=== PATIENT | male | born 1960 | race Two or more races ===

== ENCOUNTER 2019-08-06 06:16 | Inpatient (IN) | payer MEDICAID, OTHER ==
[~2019-08-06] VITALS: Ht 160 cm; Wt 63.5 kg
--- NOTE | 2019-08-06 06:18 | NUR ---
ED Nurse Note: pt presents to ED via EMS arrival RA 829 with a behavioral complaint. [employer] badge # [id number] are at bedside and placed a hold on pt. per EMS, pt was completely naked and running into traffic. they state that they beleive he is a danger to himself. pt appears to be dishevled and unkempt, he has a strong foul odor, he is guyanese speaking but his answers seem to be incoherent. he ambulates with a steady gait and can follow simple commands. he does not have any belongings. pt is alert and responds to his name but cannot answer questions about date, orientation or purpose.
[2019-08-06 06:25] VITALS: BP 155/83
--- NOTE | 2019-08-06 06:25 | NUR ---
ED Nurse Note: upon re-examination, pt is able to answer questions more coherently. he knows the day of the week but still does not know where he is. he is able to answer questions and follow commands. pt states he is SI and HI, he states he wants to hurt himself and others. denies any pain at this time. all safety precautions are in place, will continue to monitor
--- NOTE | 2019-08-06 06:36 | Emergency Room Report ---
History of Present Illness General Chief Complaint: Behavioral Complaint Source: Patient, EMS, Law Enforcement Present Illness HPI The patient is brought in by [employer] and EMS found walking naked in the streets. The patient denies pain at this time. He states he usually takes psychiatric medications. Most recently he was taking Zyprexa. He is not sure of the dose. He denies suicidal or homicidal ideations. The police have placed the patient on a 5150. The patient admits to smoking, alcohol and cocaine use. He has been admitted psychiatrically in the past. He denies suicidal or homicidal ideation. Patient says yes to most questions. Patient denies productive cough, headache, nausea, vomiting or diarrhea. He denies dysuria. He does have blisters on his feet. The patient states his been 15 years since his last tetanus shot. Allergies: Coded Allergies: No Known Allergies (Unverified , 08/06/19) Patient History Past Medical History: see triage record Social History: Reports: smoking, alcohol use, drug use Social History Narrative Born in [place] Reviewed Nursing Documentation: PMH: Agreed; PSxH: Agreed Nursing Documentation-PMH Hx Hypertension: Yes History Of Psychiatric Problem: Yes Review of Systems All Other Systems: negative except mentioned in HPI Physical Exam Vital Signs Date Time Temp Pulse Resp B/P (MAP) Pulse Ox O2 Delivery O2 Flow Rate FiO2 08/06/19 06:10 98.2 88 18 155/83 (107) 98 Room Air Sp02 EP Interpretation: reviewed, normal General Appearance: alert, non-toxic, thin, other - Disheveled Head: normocephalic Eyes: bilateral eye PERRL, bilateral eye EOMI, bilateral eye Scleral Injection ENT: moist mucus membranes Neck: supple Respiratory: lungs clear, normal breath sounds Cardiovascular #1: regular rate, rhythm Cardiovascular #2: 2+ radial (R) Gastrointestinal: normal inspection, normal bowel sounds, non tender, no mass, non-distended Musculoskeletal: back normal, normal range of motion, gait/station normal Neurologic: alert, motor strength/tone normal, asset management analyst III-XII nml as tested, oriented - X2, DTRs symmetric, sensory intact, cerebellar normal, speech normal Psychiatric: mood/affect normal - Somewhat flat affect, no suicidal/homicidal ideation Skin: abrasion - Ankles, other - Blisters on feet Medical Decision Making Diagnostic Impression: Primary Impression: Rhabdomyolysis Qualified Codes: T79.6XXA - Traumatic ischemia of muscle, initial encounter Additional Impressions: Leukocytosis Qualified Codes: D72.828 - Other elevated white blood cell count Schizophrenia Qualified Codes: F20.9 - Schizophrenia, unspecified Blister of foot Qualified Codes: S90.829A - Blister (nonthermal), unspecified foot, initial encounter ER Course Patient with prior psychiatric history is brought in by [employer] and placed on 5150. Differential includes exacerbation of schizophrenia, electrolyte imbalance, dehydration, substance abuse amongst others. Patient evaluated with EKG, chest x-ray and labs. Patient treated with bacitracin, Zyprexa and IV hydration. Complex patient with multisystem involvement. EKG normal sinus rhythm. Chest x-ray poor inspiration film. Labs with leukocytosis. Elevated CPK and low potassium. Alkalinization begun. Potassium administered orally. Patient admitted medical. Laboratory Tests Test 08/06/19 06:39 08/06/19 06:55 08/06/19 15:30 08/06/19 18:00 HIV (1&2) Antibody Rapid Negative (NEGATIVE) White Blood Count 18.1 K/UL (4.8-10.8) H Red Blood Count 5.55 M/UL (4.70-6.10) Hemoglobin 17.0 G/DL (14.2-18.0) Hematocrit 49.7 % (42.0-52.0) Mean Corpuscular Volume 90 FL (80-99) Mean Corpuscular Hemoglobin 30.6 PG (27.0-31.0) Mean Corpuscular Hemoglobin Concent 34.1 G/DL (32.0-36.0) Red Cell Distribution Width 11.0 % (11.6-14.8) L Platelet Count 256 K/UL (150-450) Mean Platelet Volume 7.5 FL (6.5-10.1) Neutrophils (%) (Auto) % (45.0-75.0) Lymphocytes (%) (Auto) % (20.0-45.0) Monocytes (%) (Auto) % (1.0-10.0) Eosinophils (%) (Auto) % (0.0-3.0) Basophils (%) (Auto) % (0.0-2.0) Differential Total Cells Counted 100 Neutrophils % (Manual) 82 % (45-75) H Lymphocytes % (Manual) 10 % (20-45) L Monocytes % (Manual) 8 % (1-10) Eosinophils % (Manual) 0 % (0-3) Basophils % (Manual) 0 % (0-2) Band Neutrophils 0 % (0-8) Platelet Estimate Adequate Platelet Morphology Normal Red Blood Cell Morphology Normal Sodium Level 146 MMOL/L (136-145) H Potassium Level 3.2 MMOL/L (3.5-5.1) L Chloride Level 108 MMOL/L (98-107) H Carbon Dioxide Level 26 MMOL/L (21-32) Anion Gap 13 mmol/L (5-15) Blood Urea Nitrogen 33 mg/dL (7-18) H Creatinine 1.0 MG/DL (0.55-1.30) Estimate Glomerular Filtration Rate > 60 mL/min (>60) Glucose Level 93 MG/DL (74-106) Calcium Level 10.2 MG/DL (8.5-10.1) H Total Bilirubin 1.4 MG/DL (0.2-1.0) H Direct Bilirubin 0.2 MG/DL (0.0-0.3) Aspartate Amino Transferase (AST) 103 U/L (15-37) H Alanine Aminotransferase (ALT) 53 U/L (12-78) Alkaline Phosphatase 128 U/L (46-116) H Total Creatine Kinase 3099 U/L (26-308) H Troponin I 0.024 ng/mL (0.000-0.056) Total Protein 8.6 G/DL (6.4-8.2) H Albumin 4.4 G/DL (3.4-5.0) Globulin 4.2 g/dL Albumin/Globulin Ratio 1.0 (1.0-2.7) Salicylates Level 0.2 ug/mL (2.8-20) L Acetaminophen Level < 2 MCG/ML (10-30) L Serum Alcohol < 3 mg/dL Hepatitis A IgM Antibody Pending Hepatitis B Surface Antigen Pending Hepatitis B Core IgM Antibody Pending Hepatitis C Antibody Pending Urine Color Brown Urine Appearance Clear Urine pH 5 (4.5-8.0) Urine Specific [place] 1.020 (1.005-1.035) Urine Protein 2+ (NEGATIVE) H Urine Glucose (UA) Negative (NEGATIVE) Urine Ketones 1+ (NEGATIVE) H Urine Blood 3+ (NEGATIVE) H Urine Nitrite Negative (NEGATIVE) Urine Bilirubin Negative (NEGATIVE) Urine Urobilinogen 8 MG/DL (0.0-1.0) H Urine Leukocyte Esterase Negative (NEGATIVE) Urine RBC 5-10 /HPF (0 - 0) H Urine WBC 2-4 /HPF (0 - 0) Urine Squamous Epithelial Cells None /LPF (NONE/OCC) Urine Bacteria Few /HPF (NONE) Urine Opiates Screen Negative (NEGATIVE) Urine Barbiturates Screen Negative (NEGATIVE) Phencyclidine (PCP) Screen Negative (NEGATIVE) Urine Amphetamines Screen Negative (NEGATIVE) Urine Benzodiazepines Screen Negative (NEGATIVE) Urine Cocaine Screen Negative (NEGATIVE) Urine Marijuana (THC) Screen Negative (NEGATIVE) EKG Diagnostic Results Rate: normal Rhythm: NSR ST Segments: no acute changes Rhythm Strip Diag. Results EP Interpretation: yes Rhythm: NSR, no PVC's, no ectopy Chest X-Ray Diagnostic Results Chest X-Ray Diagnostic Results : Chest X-Ray Ordered: Yes # of Views/Limited/Complete: 1 View Indication: Other EP Interpretation: Yes Interpretation: no consolidation, no effusion, no pneumothorax Impression: No acute disease Electronically Signed by: Electronically signed by Neel Jules MD Last Vital Signs Date Time Temp Pulse Resp B/P (MAP) Pulse Ox O2 Delivery O2 Flow Rate FiO2 08/06/19 16:00 98.2 72 20 112/69 (83) 97 08/06/19 09:45 Room Air Status: improved Disposition: ADMITTED INPATIENT Condition: Serious Neel Jules MD Aug 06, 2019 06:36
[2019-08-06] MEDS ORDERED: Bacitracin Oint UD TOPIC ONE (06:45)
[2019-08-06] MEDS ORDERED: Tetanus/Diptheria/Pertussis IM ONE (06:45)
--- NOTE | 2019-08-06 06:58 | NUR ---
ED Nurse Note: breakfast ordered, pt is unable to provide urine sample at this time, all labwork sent to lab. IV line established in L hand, fluids running
--- NOTE | 2019-08-06 06:59 | NUR ---
ED Nurse Note: TIERRA Jules notified about inability to obtain urine sample at this time. pt has many cuts noted on his feet, possibly from walking without shoes on as pt was brought into ED completely naked without any belongings.
[2019-08-06 07:06] LABS: HEMATOCRIT 49.7 % (42.0-52.0); MEAN CORPUSCULAR VOLUME 90 FL (80-99); PLATELET COUNT 256 K/UL (150-450); RED BLOOD COUNT 5.55 M/UL (4.70-6.10); WHITE BLOOD COUNT 18.1 K/UL (4.8-10.8)
--- NOTE | 2019-08-06 07:10 | NUR ---
HAND-OFF: Report given to Meme Last RN.
--- NOTE | 2019-08-06 07:11 | NUR ---
ED Nurse Note: Received pt on bed, awake and alert. Noted IV hydration on going to site; intact, patent and infusing well. Pt's VSS, on RA, NAD. Placed bed on low position, bilateral side rails up.
[2019-08-06 07:18] LABS: ANION GAP 13 mmol/L (5-15); BLOOD UREA NITROGEN 33 mg/dL (7-18); CALCIUM 10.2 MG/DL (8.5-10.1); CARBON DIOXIDE 26 MMOL/L (21-32); CHLORIDE 108 MMOL/L (98-107); POTASSIUM 3.2 MMOL/L (3.5-5.1); SODIUM 146 MMOL/L (136-145)
--- NOTE | 2019-08-06 07:27 | NUR ---
ED Nurse Note: X-ray at bedside.
[2019-08-06 07:28] LABS: ALANINE AMINOTRANSFERASE 53 U/L (12-78); ALBUMIN 4.4 G/DL (3.4-5.0); ALKALINE PHOSPHATASE 128 U/L (46-116); ASPARTATE AMINO TRANSFERASE 103 U/L (15-37); BILIRUBIN,TOTAL 1.4 MG/DL (0.2-1.0); CREATINE KINASE 3099 U/L (26-308)
[2019-08-06 07:32] LABS: BILIRUBIN,DIRECT 0.2 MG/DL (0.0-0.3)
--- NOTE | 2019-08-06 07:42 | NUR ---
ED Nurse Note: [facility] Nurse Drapery Hemmer Automatic/thaiter at bedside.
--- NOTE | 2019-08-06 07:47 | NUR ---
ED Nurse Note: Offered breakfast tray to pt.
[2019-08-06 07:48] VITALS: BP 155/83
--- NOTE | 2019-08-06 07:58 | NUR ---
ED Nurse Note: Pt consumed 100% of breakfast meal.
[2019-08-06] MEDS: Sodium Bicarbonate 150 ML in D5W 1000ml 1,000 ML IV SCH ×2 (08:00→13:16)
--- NOTE | 2019-08-06 08:39 | Diagnostic Imaging Report ---
Indication: Cough Technique: One view of the chest Comparison: none Findings: Lungs and pleural spaces are clear. Heart size is normal. Impression: No acute process
--- NOTE | 2019-08-06 09:15 | NUR ---
TRANSFER TO [facility]: Patient transferred to [address] as ordered, per Dr. Andrade. Report given to Triny SLATER. Noted pt has no belongings, as written on the form. Pt arrived to [facility] accompanied by [facility] nurse medical office receptionist assistant/sitter. Family and or S/O informed of transfer.
[2019-08-06 09:30] VITALS: BP 140/86
--- NOTE | 2019-08-06 09:30 | NUR ---
NURSE NOTES: RECEIVED PATIENT A/A/OX1, CONFUSED UPON ADMISSION. SITTER @ BEDSIDE. PATIENT WAS COVERED WITH DRY MUD AND DRY FECES. WASHED AND ASSESS SKIN. WOUND PHOTO TAKEN AND UPLOADED ON BLE(FEET) INITIAL TREATMENT RENDERED. WELSH SPEAKING AND NOT ABLE TO OBTAIN INFO FOR ADMISSION @ THIS TIME. PATIENT APPEARED TO BE STARTLED WHEN HIS NAME CALLED. NO PERSONAL BELONGINGS NOTED. ADMISSION ORDERS OBTAINED. BED IS IN THE LOWEST POSITION. CALL LIGHT IS WITHIN REACH. SIDERAILS ARE UP X3, BED ALARM ENGAGED AND LOCK @ ALL TIMES. IV ACCESS PATENT AND INTACT AND IVF INFUSING WELL AND WRAPPED WITH KERLEX FOR POSSIBLE REMOVING TUBING. WILL CONT TO MONITOR.
--- NOTE | 2019-08-06 10:16 | Consultation ---
Consult Note Consult Note Asked to eval for Rhabdo- Patient poor historian- Disheveled ER: The patient is brought in by [employer] and EMS found walking naked in the streets. The patient denies pain at this time. He states he usually takes psychiatric medications. Most recently he was taking Zyprexa. He is not sure of the dose. He denies suicidal or homicidal ideations. The police have placed the patient on a 5150. The patient admits to smoking, alcohol and cocaine use. He has been admitted psychiatrically in the past. He denies suicidal or homicidal ideation. Patient says yes to most questions. Patient denies productive cough, headache, nausea, vomiting or diarrhea. He denies dysuria. He does have blisters on his feet. The patient states his been 15 years since his last tetanus shot. No Known Allergies (Unverified , 08/06/19) Past Medical History: see triage record Social History: Reports: smoking, alcohol use, drug use Social History Narrative Born in [place] Hx Hypertension: Yes History Of Psychiatric Problem: Yes interviewed examined data reviewed Assessment/Plan Rhabdo- Drug use- Dehydration Homelessness HTN Hydrate monitor CPK Keep bp in check skin care- discussed with Kurt Valderrama MD Aug 06, 2019 10:16
--- NOTE | 2019-08-06 10:41 | NUR ---
NURSE NOTES: Spoke to regarding patient and new order received. Order read back and carried out.
[2019-08-06] MEDS ORDERED: LORazepam 1mg tab ORAL PRN (10:45)
[2019-08-06] MEDS: D5 1/2NS 1,000 ML IV SCH ×2 (11:02→20:52)
[2019-08-06 12:00] VITALS: BP 119/67
[2019-08-06] MEDS ORDERED: HydrALAZINE 25mg tab ORAL PRN (13:30)
--- NOTE | 2019-08-06 14:14 | Infectious Diseases Prog Note ---
Subjective Allergies: Coded Allergies: No Known Allergies (Unverified , 08/06/19) Subjective # [id number] Objective Vital Signs Last 24 Hour Vital Signs Date Time Temp Pulse Resp B/P (MAP) Pulse Ox O2 Delivery O2 Flow Rate FiO2 08/06/19 12:00 97.7 78 20 119/67 (84) 96 08/06/19 09:45 Room Air 08/06/19 09:30 96.8 68 18 140/86 (104) 96 08/06/19 09:15 98.5 88 21 154/89 99 Room Air 08/06/19 07:48 98.2 90 20 155/83 98 Room Air 08/06/19 06:25 88 18 155/83 98 Room Air 08/06/19 06:25 88 18 Room Air 08/06/19 06:10 98.2 88 18 155/83 (107) 98 Room Air Height (Feet): 5 Height (Inches): 3.00 Weight (Pounds): 145 Laboratory Tests Test 08/06/19 06:55 White Blood Count 18.1 K/UL (4.8-10.8) H Red Blood Count 5.55 M/UL (4.70-6.10) Hemoglobin 17.0 G/DL (14.2-18.0) Hematocrit 49.7 % (42.0-52.0) Mean Corpuscular Volume 90 FL (80-99) Mean Corpuscular Hemoglobin 30.6 PG (27.0-31.0) Mean Corpuscular Hemoglobin Concent 34.1 G/DL (32.0-36.0) Red Cell Distribution Width 11.0 % (11.6-14.8) L Platelet Count 256 K/UL (150-450) Mean Platelet Volume 7.5 FL (6.5-10.1) Neutrophils (%) (Auto) % (45.0-75.0) Lymphocytes (%) (Auto) % (20.0-45.0) Monocytes (%) (Auto) % (1.0-10.0) Eosinophils (%) (Auto) % (0.0-3.0) Basophils (%) (Auto) % (0.0-2.0) Differential Total Cells Counted 100 Neutrophils % (Manual) 82 % (45-75) H Lymphocytes % (Manual) 10 % (20-45) L Monocytes % (Manual) 8 % (1-10) Eosinophils % (Manual) 0 % (0-3) Basophils % (Manual) 0 % (0-2) Band Neutrophils 0 % (0-8) Platelet Estimate Adequate Platelet Morphology Normal Red Blood Cell Morphology Normal Sodium Level 146 MMOL/L (136-145) H Potassium Level 3.2 MMOL/L (3.5-5.1) L Chloride Level 108 MMOL/L (98-107) H Carbon Dioxide Level 26 MMOL/L (21-32) Anion Gap 13 mmol/L (5-15) Blood Urea Nitrogen 33 mg/dL (7-18) H Creatinine 1.0 MG/DL (0.55-1.30) Estimat Glomerular Filtration Rate > 60 mL/min (>60) Glucose Level 93 MG/DL (74-106) Calcium Level 10.2 MG/DL (8.5-10.1) H Total Bilirubin 1.4 MG/DL (0.2-1.0) H Direct Bilirubin 0.2 MG/DL (0.0-0.3) Aspartate Amino Transf (AST/SGOT) 103 U/L (15-37) H Alanine Aminotransferase (ALT/SGPT) 53 U/L (12-78) Alkaline Phosphatase 128 U/L (46-116) H Total Creatine Kinase 3099 U/L (26-308) H Troponin I 0.024 ng/mL (0.000-0.056) Total Protein 8.6 G/DL (6.4-8.2) H Albumin 4.4 G/DL (3.4-5.0) Globulin 4.2 g/dL Albumin/Globulin Ratio 1.0 (1.0-2.7) Salicylates Level 0.2 ug/mL (2.8-20) L Acetaminophen Level < 2 MCG/ML (10-30) L Serum Alcohol < 3 mg/dL Current Medications Medications (Trade) Dose Ordered Sig/Solange Route PRN Reason Start Time Stop Time Status Last Admin Dose Admin Dextrose/Sodium Chloride 1,000 ml @ 100 mls/hr Q10H IV 08/06/19 10:12 09/05/19 10:11 08/06/19 11:02 Docusate Sodium (Colace) 100 mg TWICE A DAY ORAL 08/06/19 18:00 09/05/19 17:59 Haloperidol Decanoate (Haldol Decanoate(Long Acting)) 50 mg QMONTH IM 08/07/19 09:00 09/06/19 08:59 Hydralazine HCl (Apresoline) 25 mg Q4H PRN ORAL bp over 160 syst 08/06/19 13:30 09/05/19 13:29 Lorazepam (Ativan) 2 mg Q4H PRN ORAL For Anxiety 08/06/19 10:45 08/13/19 10:44 Pantoprazole (Protonix) 40 mg DAILY ORAL 08/06/19 10:15 09/05/19 10:14 08/06/19 12:58 Risperidone (RisperDAL) 2 mg BEDTIME ORAL 08/06/19 21:00 09/05/19 20:59 Tiago Hdz MD Aug 06, 2019 14:14
[2019-08-06 16:00] VITALS: BP 112/69
--- NOTE | 2019-08-06 16:10 | NUR ---
MACHINE OPERATOR FARMWORKER CONSULT LEAH received a consult for homelessness, substance abuse and suicide attempt. LEAH and Gudelia RANGEL (bilingual Slovak) met w/ pt and assessed pt. Pt is monolingual Slovak. Pt presents as disheveled. Pt was sedated and was able to obtain minimal information. Pt states he resides w/ her named Yudith. Pt was unable to recall the contact information and home address. Pt currently denies SI/HI. Pt is aware that he is currently at the hospital. Pt currently denies substance abuse. LEAH will attempt to meet w/ pt when pt becomes more alert and awake. Signed: 08/06/19 at 1614 by BAHMAN LYNN <Co-Signature Required>
--- NOTE | 2019-08-06 16:37 | NUR ---
NURSE NOTES: spoke and order obtained from Dr. Olmstead re: patient has not voided since this am admission. bladder scanned done 452 ml output. will cont to monitor.
--- NOTE | 2019-08-06 17:15 | History and Physical Report ---
DATE OF ADMISSION: 08/06/2019 TIME SEEN: 11 a.m. CONSULTANTS: 1. Kurt Olmstead M.D. 2. Courtney Meraz M.D. CHIEF COMPLAINT: Rhabdomyolysis, altered mental status, 5150, confusion. BRIEF HISTORY: This is a 58-year-old homeless man, who presents to [facility] with above-mentioned diagnosis, currently very sedated in bed not answering questions. REVIEW OF SYSTEMS: Unavailable. PAST MEDICAL HISTORY: Schizophrenia, leukocytosis, and rhabdomyolysis. PAST SURGICAL HISTORY: Unknown. ALLERGIES: Denies. MEDICATIONS: Include Haldol, Risperdal, lorazepam, pantoprazole, bacitracin, and olanzapine. SOCIAL HISTORY: Not obtained secondary to the patient's condition. PHYSICAL EXAMINATION: GENERAL: Lethargic in bed, sleepy, not answering questions. VITAL SIGNS: Temperature 97 degrees, pulse 68, respirations 18, and blood pressure 140/86. CARDIOVASCULAR: No murmur. LUNGS: Distant and clear. ABDOMEN: Bowel sound positive. Nontender. Nondistended. EXTREMITIES: No cyanosis, clubbing, or edema. NEUROLOGIC: The patient is flaccid in bed, not following directions. LABORATORY AND DIAGNOSTIC DATA: Labs at this time show white count 18, otherwise CBC is normal. BMP shows sodium 146, potassium 3.2, chloride 108, BUN 33. CK 3099. Troponin 0.024. Alkaline phosphatase 128. ASSESSMENT: 1. Altered mental status. 2. Schizophrenia. 3. Leukocytosis. 4. Rhabdomyolysis. 5. Dehydration. PLAN: 1. IV fluids. 2. Psychiatric and dietary followup 3. Transfer to [facility] if possible. 4. ID evaluation. Mike Andrade D.O. DR: ANDRIY JOB#: [id number] CC:
[2019-08-06] MEDS ORDERED: Docusate 100mg cap ORAL SCH (18:00)
--- NOTE | 2019-08-06 18:16 | NUR ---
NURSE NOTES: send urine sample to the lab. patient ambulate to the toilet and able to void. Did not have to do in and out. will cont to monitor.
--- NOTE | 2019-08-06 18:18 | NUR ---
NURSE NOTES: henrry @ bedsideSilverio for possible elopement.
[2019-08-06 18:45] LABS: APPEARANCE,URINE CLEAR; BILIRUBIN, URINE NEGATIVE (NEGATIVE); COLOR,URINE BROWN; GLUCOSE, URINE (UA) NEGATIVE (NEGATIVE); KETONES,URINE 1+ (NEGATIVE); LEUKOCYTE ESTERASE ,URINE NEGATIVE (NEGATIVE); NITRITE,URINE NEGATIVE (NEGATIVE); PH,URINE 5 (4.5-8.0); PROTEIN,URINE 2+ (NEGATIVE); UROBILINOGEN,URINE 8 MG/DL (0.0-1.0)
--- NOTE | 2019-08-06 19:15 | NUR ---
NURSE NOTES: Received patient on bed, awake, verbally responsive. patient is calm. with sitter on the bedside. denies any pain or discomfort. no sob. reiterated to call or ask for assistance. bed alarm on. call light and light button within easy reach. emphasized to the sitter to watch on the patient and to report any unnecessary circumstances. will continue plan of care.
--- NOTE | 2019-08-06 19:19 | NUR ---
HAND-OFF: Report given to
[2019-08-06 19:58] VITALS: BP_SYST 125; BP_SYST 14; BP_DIAS 78
--- NOTE | 2019-08-06 20:45 | Consultation ---
DATE OF CONSULTATION: 08/06/2019 INFECTIOUS DISEASE CONSULTATION CONSULTING PHYSICIAN: Tiago Hdz M.D. REFERRING PHYSICIAN: Mike Andrade D.O. REASON FOR CONSULTATION: Evaluation of the patient for leukocytosis, possible sepsis, and need for antibiotics. HISTORY OF PRESENT ILLNESS: The patient is a 58-year-old male, poor historian, homeless, who was brought to this medical center after the patient was found on the street. The patient admits to smoking marijuana and doing some IV drugs; however, the patient denied alcohol abuse to me. Reported that the patient at the time of admission was found to be covered with feces. The patient was found to have leukocytosis and elevated CK. Infectious Disease consultation has been requested for further evaluation of the patient. The patient denies of having been tested for hepatitis and HIV. PAST MEDICAL HISTORY: Significant for psychiatric disorder and hypertension. SOCIAL HISTORY: The patient admits to IV drug abuse and smoking marijuana. FAMILY HISTORY: Noncontributory. REVIEW OF SYSTEMS: The patient is poor historian. MEDICATIONS: The patient is currently off of antibiotics. PHYSICAL EXAMINATION: VITAL SIGNS: Temperature 97, blood pressure 119/67, pulse 78, and respiratory rate 20. HEENT: No pale conjunctivae. No scleral icterus. NECK: No lymphadenopathy. CHEST: Clear. HEART: S1 and S2. ABDOMEN: Soft. EXTREMITIES: The patient has some blisters on the lower extremity. LABORATORY AND DIAGNOSTIC DATA: BUN 32, creatinine 1. AST 103, ALT 53, and alkaline phosphatase 128. Total CK 3000. White count of 18, hemoglobin 17, and platelets 256,000. Chest x-ray showed no acute process. ASSESSMENT: The patient is a 58-year-old male, who was brought to the hospital and found on the street, 1. The patient has rhabdomyolysis and leukocytosis (probably secondary to acute stress). 2. Rule out bacteremia (history of IV drug abuse). 3. Afebrile. 4. Rule out HIV and hepatitis. PLAN: 1. We will monitor the patient off of antibiotics. 2. We will send blood culture x2. 3. HIV screening. 4. Hepatitis panel. 5. We will monitor CBC. 6. We will monitor the patient's clinical course. 7. If the patient develops fever and the patient's cultures turns to be positive, we will start the patient on antibiotic treatment. Thank you, Dr. Mike Andrade, for allowing me to participate in the care of this patient. I will follow the patient with you during this hospitalization. Tiago Hdz M.D. DR: SONG JOB#: [id number] CC:
[2019-08-07 00:07] VITALS: BP 107/60
--- NOTE | 2019-08-07 01:00 | NUR ---
NURSE NOTES: noted patient sensitive to noise and sounds and gets irritated and restless. sitter is on the bedside. ensured safety. provided rest and comfort. removed unnecessary noises. will continue plan of care
--- NOTE | 2019-08-07 03:30 | Consultation ---
DATE OF CONSULTATION: 08/06/2019 CONSULTING PHYSICIAN: Courtney Meraz M.D. HISTORY OF PRESENT ILLNESS: This is a 58-year-old [place] male with a history of homelessness and schizophrenia, who has been admitted to the hospital due to rhabdomyolysis. The patient has multiple wounds on his feet and from walking barefoot. The patient is easily agitated and is responding to internal stimuli and making nonsensical words that one of the staff translated as the patient only speaks Egyptian. The patient was placed on a 5150 for suicidal ideation. He denied any suicidal ideation on the unit, stated that the patient feels . The patient denies psychiatric hospitalization. PAST MEDICAL HISTORY: As above. ALLERGIES: No known drug allergies. SUBSTANCE ABUSE HISTORY: No known history of illicit drug use or alcohol. MENTAL STATUS EXAMINATION: The patient is alert and oriented times self. Mood is anxious. Affect is flat. Thought process is concrete. Thought content, no suicidal or homicidal ideation. Cognition is impaired. Insight and judgment impaired. ASSESSMENT: [place] I Schizophrenia. Dementia. [place] II Deferred. [place] III As above. [place] IV Low. [place] V . PLAN: 1. Risperidone 2 mg at bedtime. 2. Haldol Decanoate. 3. Provide the patient with reality orientation. 4. . Courtney Meraz M.D. DR: BHAVIK JOB#: [id number] CC:
[2019-08-07 04:00] VITALS: BP 124/70
[2019-08-07] MEDS: D5 1/2NS 1,000 ML IV SCH ×2 (05:12→17:22)
--- NOTE | 2019-08-07 07:30 | NUR ---
HAND-OFF: Report given to randi turner. called sharda to clarify regarding the sitter order.charge nurse made aware. endorsed to follow up regarding the sitter order.
[2019-08-07 08:00] VITALS: BP 124/73
--- NOTE | 2019-08-07 08:03 | NUR ---
NURSE NOTES: Patient awake, alert x4; on room air, no sing of distress and shortness of breath; no sing of chest pain; IV Left AC20G D51/2NS 100cc running; sitter at the bed side, according to the report from BRYON Yost patient is high risk for elopement; according to the report the sitter order is canceled by MD Meraz, however they continue to carry the sitter order by the order of MD Andrade and PM supervisor frame assembly; PM nurseRitika called left a message to clarify the order to MD Andrade, will followup on that; charge nurseNik is aware of this; side rails up x2, breaks engaged, bed at lowest position, bed alarm on; call light within reach; will keep monitoring.
[2019-08-07] MEDS ORDERED: Haloperidol Decanoate (Long Acting) 50mg Inj IM SCH (09:00)
--- NOTE | 2019-08-07 09:28 | General Progress Note ---
Assessment/Plan Problem List: (1) Blister of foot ICD Codes: S90.829A - Blister (nonthermal), unspecified foot, initial encounter SNOMED: 249755113 Qualifiers: Qualified Codes: S90.829A - Blister (nonthermal), unspecified foot, initial encounter (2) Leukocytosis ICD Codes: D72.829 - Elevated white blood cell count, unspecified SNOMED: 622127983, 795255493 Qualifiers: Qualified Codes: D72.828 - Other elevated white blood cell count (3) Rhabdomyolysis ICD Codes: M62.82 - Rhabdomyolysis SNOMED: 185866477, [id number] Qualifiers: Qualified Codes: T79.6XXA - Traumatic ischemia of muscle, initial encounter (4) Schizophrenia ICD Codes: F20.9 - Schizophrenia, unspecified SNOMED: 98722285 Qualifiers: Qualified Codes: F20.9 - Schizophrenia, unspecified Status: stable, progressing Assessment/Plan: pt diet wound care pain control psyc podiatry eval cbc bmp am Subjective Constitutional: Reports: weakness Allergies: Coded Allergies: No Known Allergies (Unverified , 08/06/19) All Systems: reviewed and negative except above Subjective calm in bed Objective Last 24 Hour Vital Signs Date Time Temp Pulse Resp B/P (MAP) Pulse Ox O2 Delivery O2 Flow Rate FiO2 08/07/19 08:00 98.1 82 19 124/73 (90) 99 08/07/19 04:00 98.1 69 20 124/70 (88) 98 08/07/19 00:07 97.8 66 19 107/60 (76) 98 08/06/19 21:00 Room Air 08/06/19 19:58 98.0 74 18 125/78 (94) 98 08/06/19 16:00 98.2 72 20 112/69 (83) 97 08/06/19 12:00 97.7 78 20 119/67 (84) 96 08/06/19 09:45 Room Air 08/06/19 09:30 96.8 68 18 140/86 (104) 96 Intake and Output 08/06/19 08/07/19 19:00 07:00 Intake Total 940 ml 900 ml Balance 940 ml 900 ml Intake Oral 240 ml 200 ml IV Total 700 ml 700 ml # Voids 1 2 # Bowel Movements 1 Laboratory Tests 2/28/20 15:30: Hepatitis A IgM Antibody [Pending], Hepatitis B Surface Antigen [Pending], Hepatitis B Core IgM Antibody [Pending], Hepatitis C Antibody [Pending] 08/06/19 18:00: Urine Color Brown, Urine Appearance Clear, Urine pH 5, Urine Specific [place] 1.020, Urine Protein 2+H, Urine Glucose (UA) Negative, Urine Ketones 1+H, Urine Blood 3+H, Urine Nitrite Negative, Urine Bilirubin Negative, Urine Urobilinogen 8H, Urine Leukocyte Esterase Negative, Urine RBC 5-10H, Urine WBC 2-4, Urine Squamous Epithelial Cells None, Urine Bacteria Few, Urine Opiates Screen Negative, Urine Barbiturates Screen Negative, Phencyclidine (PCP) Screen Negative, Urine Amphetamines Screen Negative, Urine Benzodiazepines Screen Negative, Urine Cocaine Screen Negative, Urine Marijuana (THC) Screen Negative Height (Feet): 5 Height (Inches): 3.00 Weight (Pounds): 145 General Appearance: lethargic EENT: normal ENT inspection Neck: normal alignment Cardiovascular: normal peripheral pulses, normal rate, regular rhythm Respiratory/Chest: chest wall non-tender, lungs clear, normal breath sounds Abdomen: normal bowel sounds, non tender, soft Extremities: normal inspection Edema: no edema noted Arm (L), no edema noted Arm (R), no edema noted Leg (L), no edema noted Leg (R), no edema noted Pedal (L), no edema noted Pedal (R), no edema noted Generalized Neurologic: responsive, motor weakness Skin: normal pigmentation, warm/dry Mike Andrade DO Aug 07, 2019 09:28
--- NOTE | 2019-08-07 10:08 | Nephrology Progress Note ---
Assessment/Plan Problem List: (1) Rhabdomyolysis (2) Leukocytosis (3) Blister of foot (4) Schizophrenia (5) Dehydration Assessment Rhabdo- Drug use- Dehydration Homelessness HTN Plan labs today pending Hydrate monitor CPK Keep bp in check skin care- discussed with RN Subjective ROS Limited/Unobtainable: No Constitutional: Reports: other - more responsive Objective Objective Last 24 Hour Vital Signs Date Time Temp Pulse Resp B/P (MAP) Pulse Ox O2 Delivery O2 Flow Rate FiO2 08/07/19 08:00 98.1 82 19 124/73 (90) 99 08/07/19 04:00 98.1 69 20 124/70 (88) 98 08/07/19 00:07 97.8 66 19 107/60 (76) 98 08/06/19 21:00 Room Air 08/06/19 19:58 98.0 74 18 125/78 (94) 98 08/06/19 16:00 98.2 72 20 112/69 (83) 97 08/06/19 12:00 97.7 78 20 119/67 (84) 96 Intake and Output 08/06/19 08/07/19 19:00 07:00 Intake Total 940 ml 900 ml Balance 940 ml 900 ml Intake Oral 240 ml 200 ml IV Total 700 ml 700 ml # Voids 1 2 # Bowel Movements 1 Current Medications Medications (Trade) Dose Ordered Sig/Solange Route PRN Reason Start Time Stop Time Status Last Admin Dose Admin Dextrose/Sodium Chloride 1,000 ml @ 100 mls/hr Q10H IV 08/06/19 10:12 09/05/19 10:11 08/07/19 05:12 Docusate Sodium (Colace) 100 mg TWICE A DAY ORAL 08/06/19 18:00 09/05/19 17:59 Haloperidol Decanoate (Haldol Decanoate(Long Acting)) 50 mg QMONTH IM 08/07/19 09:00 09/06/19 08:59 Hydralazine HCl (Apresoline) 25 mg Q4H PRN ORAL bp over 160 syst 08/06/19 13:30 09/05/19 13:29 Lorazepam (Ativan) 2 mg Q4H PRN ORAL For Anxiety 08/06/19 10:45 08/13/19 10:44 Pantoprazole (Protonix) 40 mg DAILY ORAL 08/06/19 10:15 09/05/19 10:14 08/06/19 12:58 Risperidone (RisperDAL) 2 mg BEDTIME ORAL 08/06/19 21:00 09/05/19 20:59 08/06/19 20:52 Laboratory Tests 08/06/19 15:30: Hepatitis A IgM Antibody [Pending], Hepatitis B Surface Antigen [Pending], Hepatitis B Core IgM Antibody [Pending], Hepatitis C Antibody [Pending] 08/06/19 18:00: Urine Color Brown, Urine Appearance Clear, Urine pH 5, Urine Specific [place] 1.020, Urine Protein 2+H, Urine Glucose (UA) Negative, Urine Ketones 1+H, Urine Blood 3+H, Urine Nitrite Negative, Urine Bilirubin Negative, Urine Urobilinogen 8H, Urine Leukocyte Esterase Negative, Urine RBC 5-10H, Urine WBC 2-4, Urine Squamous Epithelial Cells None, Urine Bacteria Few, Urine Opiates Screen Negative, Urine Barbiturates Screen Negative, Phencyclidine (PCP) Screen Negative, Urine Amphetamines Screen Negative, Urine Benzodiazepines Screen Negative, Urine Cocaine Screen Negative, Urine Marijuana (THC) Screen Negative Height (Feet): 5 Height (Inches): 3.00 Weight (Pounds): 145 General Appearance: no apparent distress Objective no change Kurt Olmstead MD Aug 07, 2019 10:08
[2019-08-07 12:00] VITALS: BP 128/76
--- NOTE | 2019-08-07 12:09 | NUR ---
NURSE NOTES: pt refused to have blood draw more than [address] Andrade notified during md rounds.
[2019-08-07] MEDS: Docusate 100mg cap ORAL SCH ×2 (12:20→17:22)
--- NOTE | 2019-08-07 12:40 | NUR ---
NURSE NOTES: I spoke with MD Andrade regarding the sitter order; MD Andrade said, we need to get the order from psych consult, MD Meraz; MD Hernández said he didn't order the continuations of the sitter; charge nurse, Nik is aware;
--- NOTE | 2019-08-07 14:07 | Infectious Diseases Prog Note ---
Assessment/Plan Assessment/Plan ASSESSMENT: The patient is a 58-year-old male, who was brought to the hospital and found on the street, 1. The patient has rhabdomyolysis and leukocytosis (probably secondary to acute stress). 2. Rule out bacteremia (history of IV drug abuse). 3. Afebrile. 4. Elevated AST -HIV ab sc, acute hep panel neg psychiatric disorder hypertension homelessness PLAN: 1. We will monitor the patient off of antibiotics. 2. f/u send blood culture x2. 3. We will monitor CBC. 4. We will monitor the patient's clinical course. 5. If the patient develops fever and the patient's cultures turns to be positive, we will start the patient on antibiotic treatment. Thank you, Dr. Mike Andrade, for allowing me to participate in the care of this patient. I will follow the patient with you during this hospitalization. Subjective Allergies: Coded Allergies: No Known Allergies (Unverified , 08/06/19) Subjective afebrile refused blood work Objective Vital Signs Last 24 Hour Vital Signs Date Time Temp Pulse Resp B/P (MAP) Pulse Ox O2 Delivery O2 Flow Rate FiO2 08/07/19 12:00 98.0 77 18 128/76 (93) 95 08/07/19 10:31 Room Air 08/07/19 08:00 98.1 82 19 124/73 (90) 99 08/07/19 04:00 98.1 69 20 124/70 (88) 98 08/07/19 00:07 97.8 66 19 107/60 (76) 98 08/06/19 21:00 Room Air 08/06/19 19:58 98.0 74 18 125/78 (94) 98 08/06/19 16:00 98.2 72 20 112/69 (83) 97 Height (Feet): 5 Height (Inches): 3.00 Weight (Pounds): 145 Objective HEENT: No pale conjunctivae. No scleral icterus. NECK: No lymphadenopathy. CHEST: Clear. HEART: S1 and S2. ABDOMEN: Soft. EXTREMITIES: The patient has some blisters on the lower extremity. Laboratory Tests Test 08/06/19 15:30 08/06/19 18:00 Hepatitis A IgM Antibody Negative (Negative) Hepatitis B Surface Antigen Negative (Negative) Hepatitis B Core IgM Antibody Negative (Negative) Hepatitis C Antibody <0.1 s/co ratio Urine Color Brown Urine Appearance Clear Urine pH 5 (4.5-8.0) Urine Specific [place] 1.020 (1.005-1.035) Urine Protein 2+ (NEGATIVE) H Urine Glucose (UA) Negative (NEGATIVE) Urine Ketones 1+ (NEGATIVE) H Urine Blood 3+ (NEGATIVE) H Urine Nitrite Negative (NEGATIVE) Urine Bilirubin Negative (NEGATIVE) Urine Urobilinogen 8 MG/DL (0.0-1.0) H Urine Leukocyte Esterase Negative (NEGATIVE) Urine RBC 5-10 /HPF (0 - 0) H Urine WBC 2-4 /HPF (0 - 0) Urine Squamous Epithelial Cells None /LPF (NONE/OCC) Urine Bacteria Few /HPF (NONE) Urine Opiates Screen Negative (NEGATIVE) Urine Barbiturates Screen Negative (NEGATIVE) Phencyclidine (PCP) Screen Negative (NEGATIVE) Urine Amphetamines Screen Negative (NEGATIVE) Urine Benzodiazepines Screen Negative (NEGATIVE) Urine Cocaine Screen Negative (NEGATIVE) Urine Marijuana (THC) Screen Negative (NEGATIVE) Current Medications Medications (Trade) Dose Ordered Sig/Solange Route PRN Reason Start Time Stop Time Status Last Admin Dose Admin Dextrose/Sodium Chloride 1,000 ml @ 100 mls/hr Q10H IV 08/06/19 10:12 09/05/19 10:11 08/07/19 05:12 Docusate Sodium (Colace) 100 mg TID ORAL 08/07/19 13:00 09/05/19 17:59 08/07/19 12:20 Haloperidol Decanoate (Haldol Decanoate(Long Acting)) 50 mg QMONTH IM 08/07/19 09:00 09/06/19 08:59 08/07/19 10:08 Hydralazine HCl (Apresoline) 25 mg Q4H PRN ORAL bp over 160 syst 08/06/19 13:30 09/05/19 13:29 Lorazepam (Ativan) 2 mg Q4H PRN ORAL For Anxiety 08/06/19 10:45 08/13/19 10:44 Pantoprazole (Protonix) 40 mg EVERY 12 HOURS ORAL 08/07/19 21:00 09/06/19 20:59 Risperidone (RisperDAL) 2 mg BEDTIME ORAL 08/06/19 21:00 09/05/19 20:59 2/28/20 20:52 Maria L Webb M.D. Aug 07, 2019 14:07
--- NOTE | 2019-08-07 15:45 | NUR ---
PT Note PT milad completed, treatment initiated. Patient has muscle weakness and decreased standing balance. Patient can benefit from PT services to increase his muscle strength and balance to improve his safety in mobility and gait. Addendum: 08/07/19 at 1546 by LANDEN CHAN PT Amended: Links added.
[2019-08-07 16:00] VITALS: BP 123/64
--- NOTE | 2019-08-07 19:20 | NUR ---
NURSE NOTES: received patient on bed, awake and verbally responsive. no pain or discomfort. no sob. patient is calm. reiterated to call or ask for assistance. demonstrated to use call light, patient re-domonstrated correctly. bed locked and in lowest position. bed alarm on. call light and light button within easy reach. will continue plan of care.
--- NOTE | 2019-08-07 19:26 | NUR ---
HAND-OFF: Report given to BRYON Esteban.
[2019-08-07 20:00] VITALS: BP 146/77
[2019-08-08] VITALS: BP 122/71
--- NOTE | 2019-08-08 01:23 | NUR ---
Patient is sleeping comfortably on bed, no sob. bed alarm on. bed locked and in lowest position. call light and light button within easy reach. will continue plan of care. Addendum: 08/08/19 at 0124 by Melissa Esteban RN NURSE NOTES:
[2019-08-08] MEDS: D5 1/2NS 1,000 ML IV SCH ×2 (01:40→11:50)
[2019-08-08 07:19] LABS: BASOPHILS % (AUTO) 0.8 % (0.0-2.0); EOSINOPHILS % (AUTO) 1.5 % (0.0-3.0); HEMATOCRIT 41.6 % (42.0-52.0); HEMOGLOBIN 14.4 G/DL (14.2-18.0); LYMPHOCYTES % (AUTO) 26.9 % (20.0-45.0); MEAN CORPUSCULAR VOLUME 89 FL (80-99); MONOCYTES % (AUTO) 6.7 % (1.0-10.0); NEUTROPHILS % (AUTO) 64.2 % (45.0-75.0); PLATELET COUNT 192 K/UL (150-450); RED CELL DISTRIBUTION WIDTH 10.4 % (11.6-14.8); WHITE BLOOD COUNT 10.2 K/UL (4.8-10.8)
--- NOTE | 2019-08-08 07:19 | NUR ---
HAND-OFF: Report given to randi turner.endorsed that the pt is high risk for fall. pt kept on getting up on bed without using the call light. advised to observed fall precautions.
--- NOTE | 2019-08-08 07:26 | NUR ---
NURSE NOTES: Patient awake, alert x3, forgetful; on room air, no sing of distress and shortness of breath; no sing of chest pain; IV Left For-Arm 22G D51/2NS @100cc; side rails up x2, breaks engaged, bed alarm on, patient is a fall risk, reminded patient to use the call light before getting up, signs at the door; yellow gown, yellow socks on patient; bed side teaching given to patient; school of nursing director told that patient is risk for fall; will keep monitoring.
[2019-08-08 07:52] LABS: ANION GAP 8 mmol/L (5-15); BLOOD UREA NITROGEN 18 mg/dL (7-18); CALCIUM 8.8 MG/DL (8.5-10.1); CARBON DIOXIDE 28 MMOL/L (21-32); CHLORIDE 106 MMOL/L (98-107); CREATININE 0.7 MG/DL (0.55-1.30); POTASSIUM 3.1 MMOL/L (3.5-5.1); SODIUM 142 MMOL/L (136-145)
[2019-08-08 08:00] VITALS: BP 154/76
[2019-08-08] MEDS: Docusate 100mg cap ORAL SCH ×3 (08:09→17:19)
--- NOTE | 2019-08-08 08:43 | General Progress Note ---
Assessment/Plan Problem List: (1) Blister of foot ICD Codes: S90.829A - Blister (nonthermal), unspecified foot, initial encounter SNOMED: [id number] Qualifiers: Qualified Codes: S90.829A - Blister (nonthermal), unspecified foot, initial encounter (2) Leukocytosis ICD Codes: D72.829 - Elevated white blood cell count, unspecified SNOMED: 623752389, 411889859 Qualifiers: Qualified Codes: D72.828 - Other elevated white blood cell count (3) Rhabdomyolysis ICD Codes: M62.82 - Rhabdomyolysis SNOMED: 260833496, [id number] Qualifiers: Qualified Codes: T79.6XXA - Traumatic ischemia of muscle, initial encounter (4) Schizophrenia ICD Codes: F20.9 - Schizophrenia, unspecified SNOMED: 73496357 Qualifiers: Qualified Codes: F20.9 - Schizophrenia, unspecified Status: stable, progressing Assessment/Plan: pt diet wound care pain control psyc podiatry eval cbc bmp am dc to psyc or snf if clear Subjective Constitutional: Reports: weakness Allergies: Coded Allergies: No Known Allergies (Unverified , 08/06/19) All Systems: reviewed and negative except above Subjective calm in bed Objective Last 24 Hour Vital Signs Date Time Temp Pulse Resp B/P (MAP) Pulse Ox O2 Delivery O2 Flow Rate FiO2 08/08/19 08:00 98.9 95 18 154/76 (102) 98 08/08/19 00:00 98.0 77 18 122/71 (88) 94 08/07/19 21:00 Room Air 08/07/19 20:00 98.1 82 18 146/77 (100) 95 08/07/19 16:00 98.2 72 17 123/64 (83) 98 08/07/19 12:00 98.0 77 18 128/76 (93) 95 08/07/19 10:31 Room Air Intake and Output 08/07/19 08/08/19 19:00 07:00 Intake Total 1600 ml 1250 ml Balance 1600 ml 1250 ml Intake Oral 500 ml 450 ml IV Total 1100 ml 800 ml # Voids 3 2 Laboratory Tests 08/08/19 05:38: White Blood Count 10.2, Red Blood Count 4.70, Hemoglobin 14.4, Hematocrit 41.6L , Mean Corpuscular Volume 89, Mean Corpuscular Hemoglobin 30.7, Mean Corpuscular Hemoglobin Concent 34.6, Red Cell Distribution Width 10.4L, Platelet Count 192, Mean Platelet Volume 7.9, Neutrophils (%) (Auto) 64.2, Lymphocytes (%) (Auto) 26.9, Monocytes (%) (Auto) 6.7, Eosinophils (%) (Auto) 1.5, Basophils (%) (Auto) 0.8, Sodium Level 142, Potassium Level 3.1L, Chloride Level 106, Carbon Dioxide Level 28, Anion Gap 8, Blood Urea Nitrogen 18, Creatinine 0.7, Estimat Glomerular Filtration Rate > 60, Glucose Level 100, Calcium Level 8.8 Height (Feet): 5 Height (Inches): 3.00 Weight (Pounds): 145 General Appearance: lethargic EENT: normal ENT inspection Neck: normal alignment Cardiovascular: normal peripheral pulses, normal rate, regular rhythm Respiratory/Chest: chest wall non-tender, lungs clear, normal breath sounds Abdomen: normal bowel sounds, non tender, soft Extremities: normal inspection Edema: no edema noted Arm (L), no edema noted Arm (R), no edema noted Leg (L), no edema noted Leg (R), no edema noted Pedal (L), no edema noted Pedal (R), no edema noted Generalized Neurologic: motor weakness Skin: normal pigmentation, warm/dry Mike Andrade DO Aug 08, 2019 08:43
[2019-08-08 10:55] LABS: ALANINE AMINOTRANSFERASE 50 U/L (12-78); ALKALINE PHOSPHATASE 90 U/L (46-116); ASPARTATE AMINO TRANSFERASE 49 U/L (15-37); BILIRUBIN,DIRECT < 0.1 MG/DL (0.0-0.3); BILIRUBIN,TOTAL 0.5 MG/DL (0.2-1.0); CREATINE KINASE 358 U/L (26-308); PHOSPHORUS 3.3 MG/DL (2.5-4.9)
--- NOTE | 2019-08-08 11:12 | Nephrology Progress Note ---
Assessment/Plan Problem List: (1) Rhabdomyolysis (2) Leukocytosis (3) Blister of foot (4) Schizophrenia (5) Dehydration Assessment Rhabdo- Drug use- Dehydration Homelessness HTN Plan labs today reviewed Hydrate monitor CPK-level is lowering Keep bp in check Add aspirin and Lopressor Check TSH. Check lipid panel. Per orders. Subjective ROS Limited/Unobtainable: No Constitutional: Reports: other - feels stronger Objective Objective Last 24 Hour Vital Signs Date Time Temp Pulse Resp B/P (MAP) Pulse Ox O2 Delivery O2 Flow Rate FiO2 08/08/19 09:00 Room Air 08/08/19 08:00 98.9 95 18 154/76 (102) 98 08/08/19 00:00 98.0 77 18 122/71 (88) 94 08/07/19 21:00 Room Air 08/07/19 20:00 98.1 82 18 146/77 (100) 95 08/07/19 16:00 98.2 72 17 123/64 (83) 98 08/07/19 12:00 98.0 77 18 128/76 (93) 95 Intake and Output 08/07/19 08/08/19 19:00 07:00 Intake Total 1600 ml 1350 ml Balance 1600 ml 1350 ml Intake Oral 500 ml 450 ml IV Total 1100 ml 900 ml # Voids 3 2 Laboratory Tests 08/08/19 05:35: Phosphorus Level 3.3, Magnesium Level 1.9, Total Bilirubin 0.5, Direct Bilirubin < 0.1, Aspartate Amino Transf (AST/SGOT) 49H, Alanine Aminotransferase (ALT/SGPT) 50, Alkaline Phosphatase 90, Total Creatine Kinase 358H, Total Protein 6.5, Albumin 3.0L 08/08/19 05:38: White Blood Count 10.2, Red Blood Count 4.70, Hemoglobin 14.4, Hematocrit 41.6L , Mean Corpuscular Volume 89, Mean Corpuscular Hemoglobin 30.7, Mean Corpuscular Hemoglobin Concent 34.6, Red Cell Distribution Width 10.4L, Platelet Count 192, Mean Platelet Volume 7.9, Neutrophils (%) (Auto) 64.2, Lymphocytes (%) (Auto) 26.9, Monocytes (%) (Auto) 6.7, Eosinophils (%) (Auto) 1.5, Basophils (%) (Auto) 0.8, Sodium Level 142, Potassium Level 3.1L, Chloride Level 106, Carbon Dioxide Level 28, Anion Gap 8, Blood Urea Nitrogen 18, Creatinine 0.7, Estimat Glomerular Filtration Rate > 60, Glucose Level 100, Calcium Level 8.8 Height (Feet): 5 Height (Inches): 3.00 Weight (Pounds): 145 General Appearance: no apparent distress Cardiovascular: tachycardia Respiratory/Chest: decreased breath sounds Abdomen: soft Objective no change Kurt Olmstead MD Aug 08, 2019 11:12
[2019-08-08] MEDS ORDERED: Metoprolol Tartrate 12.5mg TAB ORAL SCH (11:15)
[2019-08-08 12:00] VITALS: BP 132/75
[2019-08-08 16:00] VITALS: BP 137/81
--- NOTE | 2019-08-08 19:31 | NUR ---
HAND-OFF: Report given to BRYON [place]. Endorsed to PM nurse that patient is risk to fall.
[2019-08-08 19:43] VITALS: BP 137/77
[2019-08-08] MEDS: Metoprolol Tartrate 12.5mg TAB ORAL SCH (20:04)
--- NOTE | 2019-08-08 20:13 | NUR ---
NURSE NOTES: Received patient awake, alert, verbal, resting in bed comfortably watching television.
[2019-08-09 04:03] VITALS: BP 142/80
[2019-08-09] MEDS: D5 1/2NS 1,000 ML IV SCH (05:58)
--- NOTE | 2019-08-09 07:00 | NUR ---
NURSE NOTES: Handoff received from BRYON Zimmerman. Patient received awake and alert and able to make needs known, no acute signs of distress noted. Patient is on room air, IV site running prescribed fluids. bed in the low and locked position with call light within reach, will continue to monitor patient.
--- NOTE | 2019-08-09 07:30 | NUR ---
HAND-OFF: Report given to Jamil Grigsby RN.
[2019-08-09 08:00] VITALS: BP 145/74
[2019-08-09 08:57] LABS: BASOPHILS % (AUTO) 0.8 % (0.0-2.0); EOSINOPHILS % (AUTO) 1.6 % (0.0-3.0); HEMATOCRIT 45.3 % (42.0-52.0); HEMOGLOBIN 15.8 G/DL (14.2-18.0); LYMPHOCYTES % (AUTO) 20.4 % (20.0-45.0); MEAN CORPUSCULAR VOLUME 88 FL (80-99); MONOCYTES % (AUTO) 4.6 % (1.0-10.0); NEUTROPHILS % (AUTO) 72.7 % (45.0-75.0); PLATELET COUNT 224 K/UL (150-450); RED BLOOD COUNT 5.17 M/UL (4.70-6.10); RED CELL DISTRIBUTION WIDTH 10.6 % (11.6-14.8); WHITE BLOOD COUNT 9.9 K/UL (4.8-10.8)
--- NOTE | 2019-08-09 09:16 | Nephrology Progress Note ---
Assessment/Plan Problem List: (1) Rhabdomyolysis (2) Leukocytosis (3) Blister of foot (4) Schizophrenia (5) Dehydration Assessment Rhabdo- Drug use- Dehydration Homelessness HTN Plan labs today pending continue Hydrate PO monitor CPK-level is lowering Keep bp in check Add aspirin and Lopressor Check TSH. Check lipid panel. Per orders. Subjective ROS Limited/Unobtainable: No Constitutional: Reports: other - feels better Objective Objective Last 24 Hour Vital Signs Date Time Temp Pulse Resp B/P (MAP) Pulse Ox O2 Delivery O2 Flow Rate FiO2 08/09/19 04:03 97.9 78 18 142/80 (100) 94 08/08/19 20:16 Room Air 08/08/19 20:04 75 137/77 08/08/19 19:43 98.0 75 18 137/77 (97) 96 08/08/19 16:00 98.1 90 17 137/81 (99) 98 08/08/19 12:00 98.1 80 19 132/75 (94) 98 08/08/19 11:15 95 154/76 Intake and Output 08/08/19 08/09/19 19:00 07:00 Intake Total 1950 ml 1080 ml Balance 1950 ml 1080 ml Intake Oral 480 ml IV Total 750 ml 600 ml Other 1200 ml # Voids 5 Current Medications Medications (Trade) Dose Ordered Sig/Solange Route PRN Reason Start Time Stop Time Status Last Admin Dose Admin Aspirin (ASA) 81 mg DAILY ORAL 08/09/19 09:00 09/08/19 08:59 Dextrose/Sodium Chloride 1,000 ml @ 50 mls/hr Q20H IV 08/08/19 11:30 09/07/19 11:29 08/09/19 05:58 Docusate Sodium (Colace) 100 mg TID ORAL 08/07/19 13:00 09/05/19 17:59 08/08/19 17:19 Haloperidol Decanoate (Haldol Decanoate(Long Acting)) 50 mg QMONTH IM 08/07/19 09:00 09/06/19 08:59 08/07/19 10:08 Hydralazine HCl (Apresoline) 25 mg Q4H PRN ORAL bp over 160 syst 08/06/19 13:30 09/05/19 13:29 Lorazepam (Ativan) 2 mg Q4H PRN ORAL For Anxiety 08/06/19 10:45 08/13/19 10:44 08/07/19 21:10 Metoprolol Tartrate (Lopressor) 12.5 mg Q12HR ORAL 08/08/19 21:00 09/07/19 20:59 08/08/19 20:04 Pantoprazole (Protonix) 40 mg EVERY 12 HOURS ORAL 08/07/19 21:00 09/06/19 20:59 08/08/19 20:04 Potassium Chloride (K-Dur) 40 meq TWICE A DAY ORAL 08/08/19 09:30 08/09/19 09:29 08/08/19 17:19 Risperidone (RisperDAL) 2 mg BEDTIME ORAL 08/06/19 21:00 09/05/19 20:59 08/08/19 20:04 Laboratory Tests 08/09/19 08:10: White Blood Count [Pending], Red Blood Count [Pending], Hemoglobin [Pending], Hematocrit [Pending], Mean Corpuscular Volume [Pending], Mean Corpuscular Hemoglobin [Pending], Mean Corpuscular Hemoglobin Concent [Pending], Red Cell Distribution Width [Pending], Platelet Count [Pending], Mean Platelet Volume [ Pending], Neutrophils (%) (Auto) [Pending], Lymphocytes (%) (Auto) [Pending], Monocytes (%) (Auto) [Pending], Eosinophils (%) (Auto) [Pending], Basophils (%) (Auto) [Pending], Sodium Level [Pending], Potassium Level [Pending], Chloride Level [Pending], Carbon Dioxide Level [Pending], Blood Urea Nitrogen [Pending], Creatinine [Pending], Estimat Glomerular Filtration Rate [Pending], Glucose Level [Pending], Hemoglobin A1c [Pending], Calcium Level [Pending], Phosphorus Level [Pending], Magnesium Level [Pending], Total Bilirubin [Pending], Aspartate Amino Transf (AST/SGOT) [Pending], Alanine Aminotransferase (ALT/SGPT ) [Pending], Alkaline Phosphatase [Pending], Total Creatine Kinase [Pending], Total Protein [Pending], Albumin [Pending], Globulin [Pending], Triglycerides Level [Pending], Cholesterol Level [Pending], LDL Cholesterol [Pending], HDL Cholesterol [Pending], Cholesterol/HDL Ratio [Pending], Vitamin B12 Level [ Pending], Folate [Pending], Thyroid Stimulating Hormone (TSH) [Pending] Height (Feet): 5 Height (Inches): 3.00 Weight (Pounds): 145 General Appearance: no apparent distress Objective no change Kurt Olmstead MD Aug 09, 2019 09:16
[2019-08-09] MEDS: Aspirin Baby 81mg ORAL SCH (09:24)
[2019-08-09] MEDS: Metoprolol Tartrate 12.5mg TAB ORAL SCH ×2 (09:24→20:34)
[2019-08-09] MEDS: Docusate 100mg cap ORAL SCH ×3 (09:25→18:06)
[2019-08-09 09:31] LABS: ALANINE AMINOTRANSFERASE 45 U/L (12-78); ALBUMIN 3.3 G/DL (3.4-5.0); ALBUMIN/GLOBULIN RATIO 0.8 (1.0-2.7); ALKALINE PHOSPHATASE 99 U/L (46-116); ANION GAP 9 mmol/L (5-15); ASPARTATE AMINO TRANSFERASE 30 U/L (15-37); BILIRUBIN,TOTAL 0.5 MG/DL (0.2-1.0); BLOOD UREA NITROGEN 13 mg/dL (7-18); CALCIUM 9.3 MG/DL (8.5-10.1); CARBON DIOXIDE 29 MMOL/L (21-32); CHLORIDE 105 MMOL/L (98-107); CHOLESTEROL 152 MG/DL (< 200); CREATINE KINASE 133 U/L (26-308); CREATININE 0.8 MG/DL (0.55-1.30); HDL CHOLESTEROL 51 MG/DL (40-60); PHOSPHORUS 3.1 MG/DL (2.5-4.9); POTASSIUM 4.2 MMOL/L (3.5-5.1); SODIUM 142 MMOL/L (136-145); TRIGLYCERIDES 78 MG/DL (30-150)
--- NOTE | 2019-08-09 09:45 | General Progress Note ---
Assessment/Plan Problem List: (1) Blister of foot ICD Codes: S90.829A - Blister (nonthermal), unspecified foot, initial encounter SNOMED: 224655971 Qualifiers: Qualified Codes: S90.829A - Blister (nonthermal), unspecified foot, initial encounter (2) Leukocytosis ICD Codes: D72.829 - Elevated white blood cell count, unspecified SNOMED: 427967492, 708901861 Qualifiers: Qualified Codes: D72.828 - Other elevated white blood cell count (3) Rhabdomyolysis ICD Codes: M62.82 - Rhabdomyolysis SNOMED: 745288403, 052764949 Qualifiers: Qualified Codes: T79.6XXA - Traumatic ischemia of muscle, initial encounter (4) Schizophrenia ICD Codes: F20.9 - Schizophrenia, unspecified SNOMED: 24056113 Qualifiers: Qualified Codes: F20.9 - Schizophrenia, unspecified Status: stable, progressing Assessment/Plan: pt diet wound care pain control psyc podiatry eval cbc bmp am dc to psyc or snf if clear Subjective Constitutional: Reports: weakness Allergies: Coded Allergies: No Known Allergies (Unverified , 08/06/19) All Systems: reviewed and negative except above Subjective calm in bed Objective Last 24 Hour Vital Signs Date Time Temp Pulse Resp B/P (MAP) Pulse Ox O2 Delivery O2 Flow Rate FiO2 08/09/19 09:24 74 145/74 08/09/19 09:00 Room Air 08/09/19 08:00 97.8 74 20 145/74 (97) 95 08/09/19 04:03 97.9 78 18 142/80 (100) 94 08/08/19 20:16 Room Air 08/08/19 20:04 75 137/77 08/08/19 19:43 98.0 75 18 137/77 (97) 96 08/08/19 16:00 98.1 90 17 137/81 (99) 98 08/08/19 12:00 98.1 80 19 132/75 (94) 98 08/08/19 11:15 95 154/76 Intake and Output 08/08/19 08/09/19 19:00 07:00 Intake Total 1950 ml 1080 ml Balance 1950 ml 1080 ml Intake Oral 480 ml IV Total 750 ml 600 ml Other 1200 ml # Voids 5 Laboratory Tests 08/09/19 08:10: White Blood Count 9.9, Red Blood Count 5.17, Hemoglobin 15.8, Hematocrit 45.3, Mean Corpuscular Volume 88, Mean Corpuscular Hemoglobin 30.6, Mean Corpuscular Hemoglobin Concent 34.9, Red Cell Distribution Width 10.6L, Platelet Count 224, Mean Platelet Volume 8.0, Neutrophils (%) (Auto) 72.7, Lymphocytes (%) (Auto) 20.4, Monocytes (%) (Auto) 4.6, Eosinophils (%) (Auto) 1.6, Basophils (%) (Auto ) 0.8, Sodium Level 142, Potassium Level 4.2, Chloride Level 105, Carbon Dioxide Level 29, Anion Gap 9, Blood Urea Nitrogen 13, Creatinine 0.8, Estimat Glomerular Filtration Rate > 60, Glucose Level 120H, Hemoglobin A1c 5.3, Calcium Level 9.3, Phosphorus Level 3.1, Magnesium Level 1.8, Total Bilirubin 0.5, Aspartate Amino Transf (AST/SGOT) 30, Alanine Aminotransferase (ALT/SGPT) 45, Alkaline Phosphatase 99, Total Creatine Kinase 133, Total Protein 7.3, Albumin 3.3L, Globulin 4.0, Albumin/Globulin Ratio 0.8L, Triglycerides Level 78 , Cholesterol Level 152, LDL Cholesterol 87, HDL Cholesterol 51, Cholesterol/ HDL Ratio 3.0L, Vitamin B12 Level [Pending], Folate [Pending], Thyroid Stimulating Hormone (TSH) 1.347 Height (Feet): 5 Height (Inches): 3.00 Weight (Pounds): 145 General Appearance: alert EENT: normal ENT inspection Neck: normal alignment Cardiovascular: normal peripheral pulses, normal rate, regular rhythm Respiratory/Chest: chest wall non-tender, lungs clear, normal breath sounds Abdomen: normal bowel sounds, non tender, soft Extremities: normal inspection Edema: no edema noted Arm (L), no edema noted Arm (R), no edema noted Leg (L), no edema noted Leg (R), no edema noted Pedal (L), no edema noted Pedal (R), no edema noted Generalized Neurologic: motor weakness Skin: normal pigmentation, warm/dry Mike Andrade DO Aug 09, 2019 09:45
[2019-08-09 12:00] VITALS: BP 119/70
--- NOTE | 2019-08-09 12:31 | Consultation ---
History of Present Illness General Date patient seen: Aug 09, 2019 Time patient seen: 12:15 Chief Complaint: Behavioral Complaint Referring physician: Dr. Andrade Reason for Consultation: B/L foot pain, R foot blister. Present Illness HPI Pt seen bedside, states he has B/L foot pain and blister on R foot. He denies any acout SOI. States that R foot blister blood has been removed. Allergies: Coded Allergies: No Known Allergies (Unverified , 08/06/19) Patient History Healthcare decision maker Resuscitation status Full Code Advanced Directive on File Physical Exam Physical Exam Narrative Focused B/L foot exam Derm: R foot evacuated blister noted R foot 1st MPJ, (-) acute SOI. (-) purulent drainage. 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 Neuro: SILT diminished. MSK: MS/ROM deferred secondary to pain. Last 24 Hour Vital Signs Date Time Temp Pulse Resp B/P (MAP) Pulse Ox O2 Delivery O2 Flow Rate FiO2 08/09/19 09:24 74 145/74 08/09/19 09:00 Room Air 08/09/19 08:00 97.8 74 20 145/74 (97) 95 08/09/19 04:03 97.9 78 18 142/80 (100) 94 08/08/19 20:16 Room Air 08/08/19 20:04 75 137/77 08/08/19 19:43 98.0 75 18 137/77 (97) 96 08/08/19 16:00 98.1 90 17 137/81 (99) 98 Intake and Output 08/08/19 08/09/19 19:00 07:00 Intake Total 1950 ml 1080 ml Balance 1950 ml 1080 ml Intake Oral 480 ml IV Total 750 ml 600 ml Other 1200 ml # Voids 5 Laboratory Tests Test 08/09/19 08:10 White Blood Count 9.9 K/UL (4.8-10.8) Red Blood Count 5.17 M/UL (4.70-6.10) Hemoglobin 15.8 G/DL (14.2-18.0) Hematocrit 45.3 % (42.0-52.0) Mean Corpuscular Volume 88 FL (80-99) Mean Corpuscular Hemoglobin 30.6 PG (27.0-31.0) Mean Corpuscular Hemoglobin Concent 34.9 G/DL (32.0-36.0) Red Cell Distribution Width 10.6 % (11.6-14.8) L Platelet Count 224 K/UL (150-450) Mean Platelet Volume 8.0 FL (6.5-10.1) Neutrophils (%) (Auto) 72.7 % (45.0-75.0) Lymphocytes (%) (Auto) 20.4 % (20.0-45.0) Monocytes (%) (Auto) 4.6 % (1.0-10.0) Eosinophils (%) (Auto) 1.6 % (0.0-3.0) Basophils (%) (Auto) 0.8 % (0.0-2.0) Sodium Level 142 MMOL/L (136-145) Potassium Level 4.2 MMOL/L (3.5-5.1) Chloride Level 105 MMOL/L (98-107) Carbon Dioxide Level 29 MMOL/L (21-32) Anion Gap 9 mmol/L (5-15) Blood Urea Nitrogen 13 mg/dL (7-18) Creatinine 0.8 MG/DL (0.55-1.30) Estimat Glomerular Filtration Rate > 60 mL/min (>60) Glucose Level 120 MG/DL (74-106) H Hemoglobin A1c 5.3 % (4.3-6.0) Calcium Level 9.3 MG/DL (8.5-10.1) Phosphorus Level 3.1 MG/DL (2.5-4.9) Magnesium Level 1.8 MG/DL (1.8-2.4) Total Bilirubin 0.5 MG/DL (0.2-1.0) Aspartate Amino Transf (AST/SGOT) 30 U/L (15-37) Alanine Aminotransferase (ALT/SGPT) 45 U/L (12-78) Alkaline Phosphatase 99 U/L (46-116) Total Creatine Kinase 133 U/L (26-308) Total Protein 7.3 G/DL (6.4-8.2) Albumin 3.3 G/DL (3.4-5.0) L Globulin 4.0 g/dL Albumin/Globulin Ratio 0.8 (1.0-2.7) L Triglycerides Level 78 MG/DL (30-150) Cholesterol Level 152 MG/DL (< 200) LDL Cholesterol 87 mg/dL (<100) HDL Cholesterol 51 MG/DL (40-60) Cholesterol/HDL Ratio 3.0 (3.3-4.4) L Vitamin B12 Level 297 PG/ML (193-986) Folate 12.2 NG/ML (8.6-58.9) Thyroid Stimulating Hormone (TSH) 1.347 uiU/mL (0.358-3.740) Height (Feet): 5 Height (Inches): 3.00 Weight (Pounds): 145 Medications Current Medications Medications (Trade) Dose Ordered Sig/Solange Route PRN Reason Start Time Stop Time Status Last Admin Dose Admin Aspirin (ASA) 81 mg DAILY ORAL 08/09/19 09:00 09/08/19 08:59 08/09/19 09:24 Docusate Sodium (Colace) 100 mg TID ORAL 08/07/19 13:00 09/05/19 17:59 08/09/19 09:25 Haloperidol Decanoate (Haldol Decanoate(Long Acting)) 50 mg QMONTH IM 08/07/19 09:00 09/06/19 08:59 08/07/19 10:08 Hydralazine HCl (Apresoline) 25 mg Q4H PRN ORAL bp over 160 syst 08/06/19 13:30 09/05/19 13:29 Lorazepam (Ativan) 2 mg Q4H PRN ORAL For Anxiety 08/06/19 10:45 08/13/19 10:44 08/07/19 21:10 Metoprolol Tartrate (Lopressor) 12.5 mg Q12HR ORAL 08/08/19 21:00 09/07/19 20:59 08/09/19 09:24 Pantoprazole (Protonix) 40 mg EVERY 12 HOURS ORAL 08/07/19 21:00 09/06/19 20:59 08/09/19 09:24 Risperidone (RisperDAL) 2 mg BEDTIME ORAL 08/06/19 21:00 09/05/19 20:59 08/08/19 20:04 Assessment/Plan Assessment/Plan: A: R foot blister evacuated, (-) acute SOI Schizo Blister HTN Rhabdomyolysis P: Pt seen and evaluated Discuss findings with patient lab and chart reviewed Rec daily wound care, cleanse R foot blister with normal saline, dressing with betadine and dry light compressive dressing. Cont Tx per specialists No acute surgical intervention required at this time. Podiatry will cont to monitor. Justin Call DPM Aug 09, 2019 12:31
--- NOTE | 2019-08-09 13:37 | Infectious Diseases Prog Note ---
Assessment/Plan Assessment/Plan ASSESSMENT: The patient is a 58-year-old male, who was brought to the hospital and found on the street, rhabdomyolysis and leukocytosis (probably secondary to acute stress) Rule out bacteremia (history of IV drug abuse) Afebrile Elevated AST -HIV ab sc, acute hep panel neg psychiatric disorder hypertension homelessness PLAN: 1. We will monitor the patient off of antibiotics. 2. f/u send blood culture x2. 3. We will monitor CBC. 4. We will monitor the patient's clinical course. Subjective Allergies: Coded Allergies: No Known Allergies (Unverified , 08/06/19) Subjective comfortable Objective Vital Signs Last 24 Hour Vital Signs Date Time Temp Pulse Resp B/P (MAP) Pulse Ox O2 Delivery O2 Flow Rate FiO2 08/09/19 12:00 97.3 68 20 119/70 (86) 97 08/09/19 09:24 74 145/74 08/09/19 09:00 Room Air 08/09/19 08:00 97.8 74 20 145/74 (97) 95 08/09/19 04:03 97.9 78 18 142/80 (100) 94 08/08/19 20:16 Room Air 08/08/19 20:04 75 137/77 08/08/19 19:43 98.0 75 18 137/77 (97) 96 08/08/19 16:00 98.1 90 17 137/81 (99) 98 Height (Feet): 5 Height (Inches): 3.00 Weight (Pounds): 145 Respiratory/Chest: lungs clear Cardiovascular: regular rhythm Abdomen: no organomegaly Microbiology Date/Time Source Procedure Growth Status 08/06/19 15:25 Blood Blood Culture - Preliminary NO GROWTH AFTER 48 HOURS Resulted 08/06/19 15:20 Blood Blood Culture - Preliminary NO GROWTH AFTER 48 HOURS Resulted Laboratory Tests Test 08/09/19 08:10 White Blood Count 9.9 K/UL (4.8-10.8) Red Blood Count 5.17 M/UL (4.70-6.10) Hemoglobin 15.8 G/DL (14.2-18.0) Hematocrit 45.3 % (42.0-52.0) Mean Corpuscular Volume 88 FL (80-99) Mean Corpuscular Hemoglobin 30.6 PG (27.0-31.0) Mean Corpuscular Hemoglobin Concent 34.9 G/DL (32.0-36.0) Red Cell Distribution Width 10.6 % (11.6-14.8) L Platelet Count 224 K/UL (150-450) Mean Platelet Volume 8.0 FL (6.5-10.1) Neutrophils (%) (Auto) 72.7 % (45.0-75.0) Lymphocytes (%) (Auto) 20.4 % (20.0-45.0) Monocytes (%) (Auto) 4.6 % (1.0-10.0) Eosinophils (%) (Auto) 1.6 % (0.0-3.0) Basophils (%) (Auto) 0.8 % (0.0-2.0) Sodium Level 142 MMOL/L (136-145) Potassium Level 4.2 MMOL/L (3.5-5.1) Chloride Level 105 MMOL/L (98-107) Carbon Dioxide Level 29 MMOL/L (21-32) Anion Gap 9 mmol/L (5-15) Blood Urea Nitrogen 13 mg/dL (7-18) Creatinine 0.8 MG/DL (0.55-1.30) Estimat Glomerular Filtration Rate > 60 mL/min (>60) Glucose Level 120 MG/DL (74-106) H Hemoglobin A1c 5.3 % (4.3-6.0) Calcium Level 9.3 MG/DL (8.5-10.1) Phosphorus Level 3.1 MG/DL (2.5-4.9) Magnesium Level 1.8 MG/DL (1.8-2.4) Total Bilirubin 0.5 MG/DL (0.2-1.0) Aspartate Amino Transf (AST/SGOT) 30 U/L (15-37) Alanine Aminotransferase (ALT/SGPT) 45 U/L (12-78) Alkaline Phosphatase 99 U/L (46-116) Total Creatine Kinase 133 U/L (26-308) Total Protein 7.3 G/DL (6.4-8.2) Albumin 3.3 G/DL (3.4-5.0) L Globulin 4.0 g/dL Albumin/Globulin Ratio 0.8 (1.0-2.7) L Triglycerides Level 78 MG/DL (30-150) Cholesterol Level 152 MG/DL (< 200) LDL Cholesterol 87 mg/dL (<100) HDL Cholesterol 51 MG/DL (40-60) Cholesterol/HDL Ratio 3.0 (3.3-4.4) L Vitamin B12 Level 297 PG/ML (193-986) Folate 12.2 NG/ML (8.6-58.9) Thyroid Stimulating Hormone (TSH) 1.347 uiU/mL (0.358-3.740) Current Medications Medications (Trade) Dose Ordered Sig/Solange Route PRN Reason Start Time Stop Time Status Last Admin Dose Admin Aspirin (ASA) 81 mg DAILY ORAL 08/09/19 09:00 09/08/19 08:59 08/09/19 09:24 Docusate Sodium (Colace) 100 mg TID ORAL 08/07/19 13:00 09/05/19 17:59 08/09/19 13:16 Haloperidol Decanoate (Haldol Decanoate(Long Acting)) 50 mg QMONTH IM 08/07/19 09:00 09/06/19 08:59 08/07/19 10:08 Hydralazine HCl (Apresoline) 25 mg Q4H PRN ORAL bp over 160 syst 08/06/19 13:30 09/05/19 13:29 Lorazepam (Ativan) 2 mg Q4H PRN ORAL For Anxiety 08/06/19 10:45 08/13/19 10:44 08/07/19 21:10 Metoprolol Tartrate (Lopressor) 12.5 mg Q12HR ORAL 08/08/19 21:00 09/07/19 20:59 08/09/19 09:24 Pantoprazole (Protonix) 40 mg EVERY 12 HOURS ORAL 08/07/19 21:00 09/06/19 20:59 08/09/19 09:24 Risperidone (RisperDAL) 2 mg BEDTIME ORAL 08/06/19 21:00 09/05/19 20:59 08/08/19 20:04 Tiago Hdz MD Aug 09, 2019 13:37
--- NOTE | 2019-08-09 14:55 | NUR ---
CASE MANAGEMENT:INITIAL REVIEW 08/06/2019 58 YR OLD MALE BIBA FROM STREET CC;BEHAVIORAL COMPLAINT SI;RHABDOMYOLYSIS. LEUKOCYTOSIS. SCHIZOPHRENIA. BLISTER OF FOOT. 98.5 90 21 155/83 98% ON RA WBC 18.1 NA+ 146 K+ 3.2 CL 108 BUN 33 CA 10.2 T-BILI 1.4 AST 103 ALK PHOS 128 TCK 3099 CXR=NEGATIVE IS;IVF NS BOLUS ONCE TDAP IM ONCE BACITRACIN TOP ONCE SODIUM BICARB IV K CL PO ONCE ADMITTED TO MED SURG MED SURG STATUS DCP;HOMELESS CASE MANAGEMENT:REVIEW 08/09/2019 SI;RHABDOMYOLYSIS. SCHIZOPHRENIA. 97.9 78 20 145/74 94% ON RA IS;ASA PO QD LOPRESSOR PO Q12 HRS PROTONIX PO Q12 HRS RISPERIDONE PO QHS ATIVAN PO Q4 HRS AARON MED SURG STATUS
[2019-08-09 16:00] VITALS: BP 124/74
--- NOTE | 2019-08-09 16:06 | NUR ---
Social Work This SW received a consult to assist with inpatient Psych placement. This SW contacted the following inpatient Psych facilities (for PET team, Virgie tran): 1) [facility]: ([facility]) [phone] (no beds available; follow up on Friday) 2) [facility]: (D[facility]) [phone] (no beds available; follow up on Friday) 3) [facility]: ([facility]) [phone], will have a PET team and bed (will eval; chart information faxed to [phone]). Pending evaluation; pet team to contact nurses station this evening for transfer when can accept (cupola charger notified).
--- NOTE | 2019-08-09 16:54 | NUR ---
WOUND CARE NOTES:Pt presented on admission with blood blister Plantar R 1st metatarsal and R hallux. Blood blisters are reabsorbing. Open blister L Hallux. Base of wund is pink and dry. Multiple scabbed lesions noted to both feet. Pt stated he is homeless and ambulates barefeet because he does not footwear.Pt complained of pain both feet. Wounds both feet cleansed with Betadine. R foot wounds covered with ABD pads and wrapped with Kerlix. Tx.Plan: Wound care orders as per Podiatry .
--- NOTE | 2019-08-09 19:34 | NUR ---
HAND-OFF: Report given to BRYON Zimmerman.
--- NOTE | 2019-08-09 19:59 | NUR ---
NURSE NOTES: Received patient awake, alert, verbal, resting in bed, comfortably watching television.
[2019-08-09 20:04] VITALS: BP 129/72
[2019-08-10] VITALS (7 sets, daily range): BP systolic 119–139; BP diastolic 72–84
--- NOTE | 2019-08-10 01:15 | Progress Note ---
DATE: 08/09/2019 SUBJECTIVE: The patient is more coherent and is able to answer the questions appropriately. No behavior issues noted and issue he is calm and alert. MENTAL STATUS EXAMINATION: Alert and oriented times self and place. Mood is anxious. Affect is flat. Thought processes is concrete. Thought content, no suicidal or homicidal ideation. Cognition is impaired. Insight and judgment is impaired. ASSESSMENT: Stable. PLAN: 1. We will continue current medications. 2. Provide the patient with reality orientation and supportive therapy. Courtney Meraz M.D. DR: MITCHELL JOB#: [id number] CC:
[2019-08-10 06:23] LABS: EOSINOPHILS % (AUTO) 2.8 % (0.0-3.0); HEMATOCRIT 46.7 % (42.0-52.0); LYMPHOCYTES % (AUTO) 25.5 % (20.0-45.0); MEAN CORPUSCULAR VOLUME 88 FL (80-99); MONOCYTES % (AUTO) 5.6 % (1.0-10.0); NEUTROPHILS % (AUTO) 65.2 % (45.0-75.0); PLATELET COUNT 251 K/UL (150-450); RED BLOOD COUNT 5.31 M/UL (4.70-6.10); RED CELL DISTRIBUTION WIDTH 10.5 % (11.6-14.8); WHITE BLOOD COUNT 10.1 K/UL (4.8-10.8)
[2019-08-10 06:33] LABS: ANION GAP 10 mmol/L (5-15); BLOOD UREA NITROGEN 20 mg/dL (7-18); CALCIUM 9.5 MG/DL (8.5-10.1); CARBON DIOXIDE 27 MMOL/L (21-32); CHLORIDE 107 MMOL/L (98-107); CREATININE 0.9 MG/DL (0.55-1.30); POTASSIUM 4.7 MMOL/L (3.5-5.1); SODIUM 144 MMOL/L (136-145)
--- NOTE | 2019-08-10 07:00 | NUR ---
NURSE NOTES: Handoff received from BRYON Zimmerman. Patient received awake and alert and able to make needs known, IV site is clean dry and intact, saline locked, bed in the low and locked position with call light within reach. Urinal at bedside. will continue to monitor patient.
--- NOTE | 2019-08-10 07:09 | NUR ---
HAND-OFF: Report given to Jamil Grigsby RN.
--- NOTE | 2019-08-10 08:22 | NUR ---
SCHOOL BUS ATTENDANT NOTE LEAH spoke w/ Keturah from [facility] [phone] that pt's referral has been declined d/t multiple medical issues. LEAH spoke hans Barrett from [facility] [phone] and faxed the referral packet to [phone]. LEAH spoke w/ Nena that there is no PET clinician available and declined the referral d/t pt's age. Per Nena, pt needs to be admitted to the geriatric 5th floor but no bed available anytime soon. LEAH spoke w/ Rubén from [facility] [phone] that there is no bed available at this time. LEAH was informed to call back in the afternoon. Signed: 08/10/19 at 0826 by BAHMAN LYNN <Co-Signature Required>
[2019-08-10] MEDS: Aspirin Baby 81mg ORAL SCH (09:03)
[2019-08-10] MEDS: Docusate 100mg cap ORAL SCH ×3 (09:03→17:18)
[2019-08-10] MEDS: Metoprolol Tartrate 12.5mg TAB ORAL SCH ×2 (09:03→21:11)
--- NOTE | 2019-08-10 11:12 | Nephrology Progress Note ---
Assessment/Plan Problem List: (1) Rhabdomyolysis (2) Leukocytosis (3) Blister of foot (4) Schizophrenia (5) Dehydration Assessment Rhabdo- Drug use- Dehydration Homelessness HTN Plan continue Hydrate PO monitor CPK-level is lowering Keep bp in check Add aspirin and Lopressor Check TSH. Check lipid panel. Per orders. Subjective ROS Limited/Unobtainable: No Constitutional: Reports: malaise Objective Objective Last 24 Hour Vital Signs Date Time Temp Pulse Resp B/P (MAP) Pulse Ox O2 Delivery O2 Flow Rate FiO2 08/10/19 09:03 87 139/84 08/10/19 08:14 Room Air 08/10/19 08:00 97.6 87 18 139/84 (102) 98 08/10/19 04:33 98.3 70 17 127/74 (91) 97 08/10/19 00:21 97.9 89 18 130/80 (97) 96 08/09/19 21:09 Room Air 08/09/19 20:34 80 129/72 08/09/19 20:04 98.1 80 18 129/72 (91) 96 08/09/19 16:00 97.3 70 20 124/74 (91) 97 08/09/19 12:00 97.3 68 20 119/70 (86) 97 Intake and Output 08/09/19 08/10/19 19:00 07:00 Intake Total 840 ml 240 ml Balance 840 ml 240 ml Intake Oral 840 ml 240 ml # Voids 3 3 Current Medications Medications (Trade) Dose Ordered Sig/Solange Route PRN Reason Start Time Stop Time Status Last Admin Dose Admin Aspirin (ASA) 81 mg DAILY ORAL 08/09/19 09:00 09/08/19 08:59 08/10/19 09:03 Docusate Sodium (Colace) 100 mg TID ORAL 08/07/19 13:00 09/05/19 17:59 08/10/19 09:03 Haloperidol Decanoate (Haldol Decanoate(Long Acting)) 50 mg QMONTH IM 08/07/19 09:00 09/06/19 08:59 08/07/19 10:08 Hydralazine HCl (Apresoline) 25 mg Q4H PRN ORAL bp over 160 syst 08/06/19 13:30 09/05/19 13:29 Lorazepam (Ativan) 2 mg Q4H PRN ORAL For Anxiety 08/06/19 10:45 08/13/19 10:44 08/07/19 21:10 Metoprolol Tartrate (Lopressor) 12.5 mg Q12HR ORAL 08/08/19 21:00 09/07/19 20:59 08/10/19 09:03 Pantoprazole (Protonix) 40 mg EVERY 12 HOURS ORAL 08/07/19 21:00 09/06/19 20:59 08/10/19 09:04 Risperidone (RisperDAL) 2 mg BEDTIME ORAL 08/06/19 21:00 09/05/19 20:59 08/09/19 20:35 Laboratory Tests 08/10/19 05:50: White Blood Count 10.1, Red Blood Count 5.31, Hemoglobin 16.0, Hematocrit 46.7, Mean Corpuscular Volume 88, Mean Corpuscular Hemoglobin 30.2, Mean Corpuscular Hemoglobin Concent 34.3, Red Cell Distribution Width 10.5L, Platelet Count 251, Mean Platelet Volume 7.9, Neutrophils (%) (Auto) 65.2, Lymphocytes (%) (Auto) 25.5, Monocytes (%) (Auto) 5.6, Eosinophils (%) (Auto) 2.8, Basophils (%) (Auto ) 1.0, Sodium Level 144, Potassium Level 4.7, Chloride Level 107, Carbon Dioxide Level 27, Anion Gap 10, Blood Urea Nitrogen 20H, Creatinine 0.9, Estimat Glomerular Filtration Rate > 60, Glucose Level 101, Calcium Level 9.5 Height (Feet): 5 Height (Inches): 3.00 Weight (Pounds): 145 Cardiovascular: normal rate Respiratory/Chest: lungs clear Abdomen: soft Objective no change Kurt Olmstead MD Aug 10, 2019 11:12
--- NOTE | 2019-08-10 11:15 | NUR ---
OFFICE CASHIER NOTE SW met w/ pt and completed the psychosocial assessment. Pt initially stated he is monolingual Somali. SW received an assistance from driver manager Brandi #[id number]. During the assessment, pt answered questions in Irish. SW discontinued the interpreting service. Pt is aware that he is currently at the hospital and he has wounds in his feet. Pt admits he is currently homeless, received SSI in the past but is currently receiving no income. Pt is unable to recall receiving the last SSI check. Pt is single, never and has no children. Pt has no siblings and his parents are . Pt currently denies SI/HI. Pt states he was [place] at the [place] of [place], [place]. Pt reports he moved to [place] in [address] and he has been homeless since then. He plans to go either [place] or going back to [facility]. Pt is ambulatory w/ DMEs. Pt initially denied substance abuse issue. Pt then stated that he is abusing "something" when he is around people on the streets. Pt was unable to provide specific types of substance that he abused. Pt denies tobacco use. Pt declined counseling/tx intervention/resource on substance abuse. LEAH will continue to F/U w/ dc planning. Signed: 08/10/19 at 1122 by BAHMAN LYNN <Co-Signature Required>
--- NOTE | 2019-08-10 12:19 | NUR ---
*-* INSURANCE *-* ALL CLINICALS AND REVIEWS HAVE BEEN FAXED TO: [facility] no ref# ph#[phone] fax#[phone] & [employer] no ref# ph#[phone] fax# [phone] Addendum: 08/10/19 at 1239 by ALEIDA CRUZ CM [facility] no ref# [id number] ph#[phone] fax# [phone]
--- NOTE | 2019-08-10 13:33 | General Progress Note ---
Assessment/Plan Problem List: (1) Blister of foot ICD Codes: S90.829A - Blister (nonthermal), unspecified foot, initial encounter SNOMED: 303669561 Qualifiers: Qualified Codes: S90.829A - Blister (nonthermal), unspecified foot, initial encounter (2) Leukocytosis ICD Codes: D72.829 - Elevated white blood cell count, unspecified SNOMED: 148219683, 341341663 Qualifiers: Qualified Codes: D72.828 - Other elevated white blood cell count (3) Rhabdomyolysis ICD Codes: M62.82 - Rhabdomyolysis SNOMED: 692400963, 309014827 Qualifiers: Qualified Codes: T79.6XXA - Traumatic ischemia of muscle, initial encounter (4) Schizophrenia ICD Codes: F20.9 - Schizophrenia, unspecified SNOMED: 10850821 Qualifiers: Qualified Codes: F20.9 - Schizophrenia, unspecified Status: stable, progressing Assessment/Plan: pt diet wound care pain control psyc podiatry eval cbc bmp am dc to psyc or snf if clear Subjective Constitutional: Reports: weakness Allergies: Coded Allergies: No Known Allergies (Unverified , 08/06/19) All Systems: reviewed and negative except above Subjective calm in bed Objective Last 24 Hour Vital Signs Date Time Temp Pulse Resp B/P (MAP) Pulse Ox O2 Delivery O2 Flow Rate FiO2 08/10/19 12:00 97.3 72 18 127/77 (94) 98 08/10/19 09:03 87 139/84 08/10/19 08:14 Room Air 08/10/19 08:00 97.6 87 18 139/84 (102) 98 08/10/19 04:33 98.3 70 17 127/74 (91) 97 08/10/19 00:21 97.9 89 18 130/80 (97) 96 08/09/19 21:09 Room Air 08/09/19 20:34 80 129/72 08/09/19 20:04 98.1 80 18 129/72 (91) 96 08/09/19 16:00 97.3 70 20 124/74 (91) 97 Intake and Output 08/09/19 08/10/19 19:00 07:00 Intake Total 840 ml 240 ml Balance 840 ml 240 ml Intake Oral 840 ml 240 ml # Voids 3 Laboratory Tests 08/10/19 05:50: White Blood Count 10.1, Red Blood Count 5.31, Hemoglobin 16.0, Hematocrit 46.7, Mean Corpuscular Volume 88, Mean Corpuscular Hemoglobin 30.2, Mean Corpuscular Hemoglobin Concent 34.3, Red Cell Distribution Width 10.5L, Platelet Count 251, Mean Platelet Volume 7.9, Neutrophils (%) (Auto) 65.2, Lymphocytes (%) (Auto) 25.5, Monocytes (%) (Auto) 5.6, Eosinophils (%) (Auto) 2.8, Basophils (%) (Auto ) 1.0, Sodium Level 144, Potassium Level 4.7, Chloride Level 107, Carbon Dioxide Level 27, Anion Gap 10, Blood Urea Nitrogen 20H, Creatinine 0.9, Estimat Glomerular Filtration Rate > 60, Glucose Level 101, Calcium Level 9.5 Height (Feet): 5 Height (Inches): 3.00 Weight (Pounds): 145 General Appearance: lethargic EENT: normal ENT inspection Neck: normal alignment Cardiovascular: normal peripheral pulses, normal rate, regular rhythm Respiratory/Chest: chest wall non-tender, lungs clear, normal breath sounds Abdomen: normal bowel sounds, non tender, soft Extremities: normal inspection Edema: no edema noted Arm (L), no edema noted Arm (R), no edema noted Leg (L), no edema noted Leg (R), no edema noted Pedal (L), no edema noted Pedal (R), no edema noted Generalized Neurologic: motor weakness Skin: normal pigmentation, warm/dry Mike Andrade DO Aug 10, 2019 13:33
--- NOTE | 2019-08-10 15:05 | NUR ---
CYBER THREAT ANALYST NOTE LEAH Orellana from [facility] [phone] that there is no bed available today. Signed: 08/10/19 at 1506 by BAHMAN LYNN <Co-Signature Required>
--- NOTE | 2019-08-10 16:19 | NUR ---
CASE MANAGEMENT:REVIEW 08/10/2019 SI;RHABDOMYOLYSIS. SCHIZOPHRENIA. FOOT BLISTER 97.3 72 18 119/72 99% ON RA IS;ASA PO QD LOPRESSOR PO Q12 HRS PROTONIX PO Q12 HRS RISPERIDONE PO QHS ATIVAN PO Q4 HRS AARON MED SURG STATUS PLAN: DC TO [facility] FOR FURTHER MEDICAL PSYC MANAGEMENT WHEN BED AVAILABLE PATIENT IS HOMELESS NEEDS PLACEMENT
--- NOTE | 2019-08-10 18:09 | Infectious Diseases Prog Note ---
Assessment/Plan Assessment/Plan ASSESSMENT: The patient is a 58-year-old male, who was brought to the hospital and found on the street, habdomyolysis and leukocytosis (probably secondary to acute stress) Rule out bacteremia (history of IV drug abuse) Afebrile Elevated AST -HIV ab sc, acute hep panel neg psychiatric disorder hypertension homelessness PLAN: will monitor the patient off of antibiotics. Blood culture x2 We will monitor CBC Subjective Allergies: Coded Allergies: No Known Allergies (Unverified , 08/06/19) Subjective comfortable Objective Vital Signs Last 24 Hour Vital Signs Date Time Temp Pulse Resp B/P (MAP) Pulse Ox O2 Delivery O2 Flow Rate FiO2 08/10/19 15:57 97.6 72 18 119/72 (88) 99 08/10/19 12:00 97.3 72 18 127/77 (94) 98 08/10/19 09:03 87 139/84 08/10/19 08:14 Room Air 08/10/19 08:00 97.6 87 18 139/84 (102) 98 08/10/19 04:33 98.3 70 17 127/74 (91) 97 08/10/19 00:21 97.9 89 18 130/80 (97) 96 08/09/19 21:09 Room Air 08/09/19 20:34 80 129/72 08/09/19 20:04 98.1 80 18 129/72 (91) 96 Height (Feet): 5 Height (Inches): 3.00 Weight (Pounds): 145 HEENT: anicteric Respiratory/Chest: no respiratory distress Cardiovascular: regular rhythm Abdomen: no organomegaly Neurologic/Psychiatric: abnormal gait Laboratory Tests Test 08/10/19 05:50 White Blood Count 10.1 K/UL (4.8-10.8) Red Blood Count 5.31 M/UL (4.70-6.10) Hemoglobin 16.0 G/DL (14.2-18.0) Hematocrit 46.7 % (42.0-52.0) Mean Corpuscular Volume 88 FL (80-99) Mean Corpuscular Hemoglobin 30.2 PG (27.0-31.0) Mean Corpuscular Hemoglobin Concent 34.3 G/DL (32.0-36.0) Red Cell Distribution Width 10.5 % (11.6-14.8) L Platelet Count 251 K/UL (150-450) Mean Platelet Volume 7.9 FL (6.5-10.1) Neutrophils (%) (Auto) 65.2 % (45.0-75.0) Lymphocytes (%) (Auto) 25.5 % (20.0-45.0) Monocytes (%) (Auto) 5.6 % (1.0-10.0) Eosinophils (%) (Auto) 2.8 % (0.0-3.0) Basophils (%) (Auto) 1.0 % (0.0-2.0) Sodium Level 144 MMOL/L (136-145) Potassium Level 4.7 MMOL/L (3.5-5.1) Chloride Level 107 MMOL/L (98-107) Carbon Dioxide Level 27 MMOL/L (21-32) Anion Gap 10 mmol/L (5-15) Blood Urea Nitrogen 20 mg/dL (7-18) H Creatinine 0.9 MG/DL (0.55-1.30) Estimat Glomerular Filtration Rate > 60 mL/min (>60) Glucose Level 101 MG/DL (74-106) Calcium Level 9.5 MG/DL (8.5-10.1) Current Medications Medications (Trade) Dose Ordered Sig/Solange Route PRN Reason Start Time Stop Time Status Last Admin Dose Admin Aspirin (ASA) 81 mg DAILY ORAL 08/09/19 09:00 09/08/19 08:59 08/10/19 09:03 Docusate Sodium (Colace) 100 mg TID ORAL 08/07/19 13:00 09/05/19 17:59 08/10/19 17:18 Haloperidol Decanoate (Haldol Decanoate(Long Acting)) 50 mg QMONTH IM 08/07/19 09:00 09/06/19 08:59 08/07/19 10:08 Hydralazine HCl (Apresoline) 25 mg Q4H PRN ORAL bp over 160 syst 08/06/19 13:30 09/05/19 13:29 Lorazepam (Ativan) 2 mg Q4H PRN ORAL For Anxiety 08/06/19 10:45 08/13/19 10:44 08/07/19 21:10 Metoprolol Tartrate (Lopressor) 12.5 mg Q12HR ORAL 08/08/19 21:00 09/07/19 20:59 08/10/19 09:03 Pantoprazole (Protonix) 40 mg EVERY 12 HOURS ORAL 08/07/19 21:00 09/06/19 20:59 08/10/19 09:04 Risperidone (RisperDAL) 2 mg BEDTIME ORAL 08/06/19 21:00 09/05/19 20:59 08/09/19 20:35 Tiago Hdz MD Aug 10, 2019 18:09
--- NOTE | 2019-08-10 19:34 | NUR ---
HAND-OFF: Report given to BRYON Zimmerman.
--- NOTE | 2019-08-10 20:02 | NUR ---
NURSE NOTES: Received patient awake, alert, verbal, resting in bed, comfortable.
[2019-08-11 04:00] VITALS: BP 131/71
--- NOTE | 2019-08-11 04:00 | Progress Note ---
DATE: 08/10/2019 SUBJECTIVE: The patient is doing well, recuperated, less anxious. The patient answers the questions appropriately. The patient is cleared from psychiatric point of view. The patient is not needing psychiatric hospitalization as he is able to answer questions. The patient is wanting to leave and is not wanting to be admitted to the psychiatric unit. However, communicated that to the staff. The patient is not holdable. The patient is not an imminent danger to self or others and not being referred as 5150. MENTAL STATUS EXAMINATION: Alert and oriented times self, place, and situation. Mood is neutral. Affect is flat. Thought process is concrete. Thought content, no suicidal or homicidal ideation. Cognition is improving. Insight and judgment are impaired. ASSESSMENT: 1. Schizophrenia. 2. The patient is not an imminent danger to self or others. PLAN: The patient is cleared from psych point of view and may be discharged. Courtney Meraz M.D. DR: RADHA JOB#: [id number] CC:
--- NOTE | 2019-08-11 07:26 | NUR ---
HAND-OFF: Report given to Triny Granado LVN.
--- NOTE | 2019-08-11 07:35 | NUR ---
NURSE NOTES: received from BRYON Zimmerman. Patient received awake, alert and orientedx4. able to make needs known, IV site is patent, dry and intact, saline locked, bed in the low and locked position with call light within reach. ambulate with steady gait. NO c/o pain/discomfort noted. will continue to monitor.
[2019-08-11 08:00] VITALS: BP 133/79
--- NOTE | 2019-08-11 08:02 | Infectious Diseases Prog Note ---
Assessment/Plan Assessment/Plan ASSESSMENT: The patient is a 58-year-old male, who was brought to the hospital and found on the street, Rhabdomyolysis Leukocytosis (probably secondary to acute stress) Rule out bacteremia (history of IV drug abuse) Afebrile Elevated AST -HIV ab sc, acute hep panel neg psychiatric disorder hypertension homelessness PLAN: will monitor the patient off of antibiotics. Blood culture x2 We will monitor CBC Subjective Constitutional: Denies: no symptoms, fever, chills, fatigue, anorexia, drenching sweats, other Genitourinary: Denies: no symptoms, dysuria, hematuria, frequency, nocturia, other Allergies: Coded Allergies: No Known Allergies (Unverified , 08/06/19) Subjective afebrile Objective Vital Signs Last 24 Hour Vital Signs Date Time Temp Pulse Resp B/P (MAP) Pulse Ox O2 Delivery O2 Flow Rate FiO2 08/11/19 04:00 98.0 76 20 131/71 (91) 96 08/10/19 23:44 98.5 76 18 134/80 (98) 96 08/10/19 21:45 Room Air 08/10/19 21:11 71 131/78 08/10/19 20:00 97.9 71 18 131/78 (95) 97 08/10/19 15:57 97.6 72 18 119/72 (88) 99 08/10/19 12:00 97.3 72 18 127/77 (94) 98 08/10/19 09:03 87 139/84 08/10/19 08:14 Room Air Height (Feet): 5 Height (Inches): 3.00 Weight (Pounds): 140 HEENT: anicteric Respiratory/Chest: no accessory muscle use Cardiovascular: normal rate Abdomen: no organomegaly Current Medications Medications (Trade) Dose Ordered Sig/Solange Route PRN Reason Start Time Stop Time Status Last Admin Dose Admin Aspirin (ASA) 81 mg DAILY ORAL 08/09/19 09:00 09/08/19 08:59 08/10/19 09:03 Docusate Sodium (Colace) 100 mg TID ORAL 08/07/19 13:00 09/05/19 17:59 08/10/19 17:18 Haloperidol Decanoate (Haldol Decanoate(Long Acting)) 50 mg QMONTH IM 2/29/20 09:00 09/06/19 08:59 08/07/19 10:08 Hydralazine HCl (Apresoline) 25 mg Q4H PRN ORAL bp over 160 syst 08/06/19 13:30 09/05/19 13:29 Lorazepam (Ativan) 2 mg Q4H PRN ORAL For Anxiety 08/06/19 10:45 08/13/19 10:44 08/07/19 21:10 Metoprolol Tartrate (Lopressor) 12.5 mg Q12HR ORAL 08/08/19 21:00 09/07/19 20:59 08/10/19 21:11 Pantoprazole (Protonix) 40 mg EVERY 12 HOURS ORAL 08/07/19 21:00 09/06/19 20:59 08/10/19 21:11 Risperidone (RisperDAL) 2 mg BEDTIME ORAL 08/06/19 21:00 09/05/19 20:59 08/10/19 21:11 Tiago Hdz MD Aug 11, 2019 08:02
[2019-08-11] MEDS: Aspirin Baby 81mg ORAL SCH (08:21)
[2019-08-11] MEDS: Metoprolol Tartrate 12.5mg TAB ORAL SCH ×2 (08:21→20:44)
[2019-08-11] MEDS: Docusate 100mg cap ORAL SCH ×3 (08:21→17:13)
--- NOTE | 2019-08-11 08:34 | NUR ---
NET SOLUTIONS ARCHITECT NOTE LEAH Juarez from [facility] [phone] that there is no bed available today. Signed: 08/11/19 at 0834 by BAHMAN LYNN <Co-Signature Required>
--- NOTE | 2019-08-11 08:42 | General Progress Note ---
Assessment/Plan Problem List: (1) Blister of foot ICD Codes: S90.829A - Blister (nonthermal), unspecified foot, initial encounter SNOMED: 699904737 Qualifiers: Qualified Codes: S90.829A - Blister (nonthermal), unspecified foot, initial encounter (2) Leukocytosis ICD Codes: D72.829 - Elevated white blood cell count, unspecified SNOMED: 070365044, 902948605 Qualifiers: Qualified Codes: D72.828 - Other elevated white blood cell count (3) Rhabdomyolysis ICD Codes: M62.82 - Rhabdomyolysis SNOMED: 897347665, 695155319 Qualifiers: Qualified Codes: T79.6XXA - Traumatic ischemia of muscle, initial encounter (4) Schizophrenia ICD Codes: F20.9 - Schizophrenia, unspecified SNOMED: 72876669 Qualifiers: Qualified Codes: F20.9 - Schizophrenia, unspecified Status: stable, progressing Assessment/Plan: pt diet wound care pain control psyc podiatry eval cbc bmp am dc to psyc or snf if clear Subjective Constitutional: Reports: weakness Allergies: Coded Allergies: No Known Allergies (Unverified , 08/06/19) All Systems: reviewed and negative except above Subjective calm in bed Objective Last 24 Hour Vital Signs Date Time Temp Pulse Resp B/P (MAP) Pulse Ox O2 Delivery O2 Flow Rate FiO2 08/11/19 08:21 80 133/79 08/11/19 04:00 98.0 76 20 131/71 (91) 96 08/10/19 23:44 98.5 76 18 134/80 (98) 96 08/10/19 21:45 Room Air 08/10/19 21:11 71 131/78 08/10/19 20:00 97.9 71 18 131/78 (95) 97 08/10/19 15:57 97.6 72 18 119/72 (88) 99 08/10/19 12:00 97.3 72 18 127/77 (94) 98 08/10/19 09:03 87 139/84 Intake and Output 08/10/19 08/11/19 19:00 07:00 Intake Total 500 ml 480 ml Output Total 200 ml Balance 500 ml 280 ml Intake Oral 500 ml 480 ml Output Urine Total 200 ml # Voids 5 2 # Bowel Movements 2 Height (Feet): 5 Height (Inches): 3.00 Weight (Pounds): 140 General Appearance: lethargic EENT: normal ENT inspection Neck: normal alignment Cardiovascular: normal peripheral pulses, normal rate, regular rhythm Respiratory/Chest: chest wall non-tender, lungs clear, normal breath sounds Abdomen: normal bowel sounds, non tender, soft Extremities: normal inspection Edema: no edema noted Arm (L), no edema noted Arm (R), no edema noted Leg (L), no edema noted Leg (R), no edema noted Pedal (L), no edema noted Pedal (R), no edema noted Generalized Neurologic: motor weakness Skin: normal pigmentation, warm/dry Mike Andrade DO Aug 11, 2019 08:42
[2019-08-11 12:02] VITALS: BP 141/71
--- NOTE | 2019-08-11 12:57 | NUR ---
CASE MANAGEMENT:REVIEW SI;RHABDOMYOLYSIS. SCHIZOPHRENIA. FOOT BLISTER 98.5 86 20 141/71 96% ON RA NO LABS AVAILABLE IS;ASA PO QD LOPRESSOR Q12 HRS PROTONIX PO Q12 HRS RISPERDAL PO QHS ATIVAN PO Q4 HRS PRN MED SURG STATUS DCP;PATIENT HOMELESS PSYCH TRANSFER VS SNF PLACEMENT
--- NOTE | 2019-08-11 14:11 | NUR ---
ROTATING FIELD ASSEMBLER NOTE SW met w/ pt and to assess his mood and mental status. Pt currently denies SI/HI. Pt states he will go back to [place] border of [place], [place]. Pt then stated his sister, Syl Guerra who resides in [place], [place] brought him to the hospital. PT is unable to recall Syl's contact information. SW spoke w/ Detective Alegre from [facility] [phone] that pt is not reported as missing person. LEAH spoke w/ Anitha from [facility] office [phone]. Per Anitha, pt has a private conservator/brother named Ramon Guerra. However, Anitha does not see any other information except pt was conserved by [facility] till 10/29/11 and then the brother became the private conservator. Anitha was also unable to confirm whether pt is currently conserved or not. Per Anitha, there is no expiration date documented. LEAH left a vm to [facility] rose grading supervisor Rom for call back. Signed: 08/11/19 at 1437 by BAHMAN LYNN <Co-Signature Required>
--- NOTE | 2019-08-11 14:56 | NUR ---
CLIENT SUPPORT PROFESSIONAL NOTE LEAH was able to locate pt's brother Ramon Guerra [phone]. Per Ramon, pt is no longer conserved and he is the payee of pt's income. Pt resides w/ his sister Jenna Guerra [phone] at [address] [place], [place]. Ramon states pt left home at 4am on 08/02/19 and he filed missing person's report at [facility] a week ago. Per Ramon, pt is welcome to return Jenna's home. Ramon addressed the concern that pt is not receiving mental health tx. Jenna attempted to link [facility] to [facility] but pt refused. Pt has hx of inpatient psych hospitalizations. LEAH explained involuntary psych admission process. LEAH relayed information to assigned CM. Signed: 08/11/19 at 1500 by BAHMAN LYNN <Co-Signature Required>
[2019-08-11 16:00] VITALS: BP 127/70
--- NOTE | 2019-08-11 16:36 | Nephrology Progress Note ---
Assessment/Plan Problem List: (1) Rhabdomyolysis (2) Leukocytosis (3) Blister of foot (4) Schizophrenia (5) Dehydration Assessment Rhabdo- Drug use- Dehydration Homelessness HTN Plan continue Hydrate PO monitor CPK-level is lowering Keep bp in check Add aspirin and Lopressor Check TSH. Check lipid panel. Per orders. Subjective ROS Limited/Unobtainable: No Objective Objective Last 24 Hour Vital Signs Date Time Temp Pulse Resp B/P (MAP) Pulse Ox O2 Delivery O2 Flow Rate FiO2 08/11/19 16:00 98.1 79 18 127/70 (89) 97 08/11/19 12:02 98.2 86 18 141/71 (94) 98 08/11/19 09:00 Room Air 08/11/19 08:21 80 133/79 08/11/19 08:00 98.1 80 18 133/79 (97) 99 08/11/19 04:00 98.0 76 20 131/71 (91) 96 08/10/19 23:44 98.5 76 18 134/80 (98) 96 08/10/19 21:45 Room Air 08/10/19 21:11 71 131/78 08/10/19 20:00 97.9 71 18 131/78 (95) 97 Intake and Output 08/10/19 08/11/19 19:00 07:00 Intake Total 500 ml 480 ml Output Total 200 ml Balance 500 ml 280 ml Intake Oral 500 ml 480 ml Output Urine Total 200 ml # Voids 5 2 # Bowel Movements 2 Current Medications Medications (Trade) Dose Ordered Sig/Solange Route PRN Reason Start Time Stop Time Status Last Admin Dose Admin Aspirin (ASA) 81 mg DAILY ORAL 08/09/19 09:00 09/08/19 08:59 08/11/19 08:21 Docusate Sodium (Colace) 100 mg TID ORAL 08/07/19 13:00 09/05/19 17:59 08/11/19 08:21 Haloperidol Decanoate (Haldol Decanoate(Long Acting)) 50 mg QMONTH IM 08/07/19 09:00 09/06/19 08:59 08/07/19 10:08 Hydralazine HCl (Apresoline) 25 mg Q4H PRN ORAL bp over 160 syst 08/06/19 13:30 09/05/19 13:29 Lorazepam (Ativan) 2 mg Q4H PRN ORAL For Anxiety 08/06/19 10:45 08/13/19 10:44 08/07/19 21:10 Metoprolol Tartrate (Lopressor) 12.5 mg Q12HR ORAL 08/08/19 21:00 09/07/19 20:59 08/11/19 08:21 Pantoprazole (Protonix) 40 mg EVERY 12 HOURS ORAL 08/07/19 21:00 09/06/19 20:59 08/11/19 08:21 Risperidone (RisperDAL) 2 mg BEDTIME ORAL 08/06/19 21:00 09/05/19 20:59 08/10/19 21:11 Height (Feet): 5 Height (Inches): 3.00 Weight (Pounds): 140 General Appearance: no apparent distress Objective no change Kurt Olmstead MD Aug 11, 2019 16:36
--- NOTE | 2019-08-11 16:54 | NUR ---
DWARF TREE GROWER NOTE LEAH received a call from pt's sister Jenna Granados [phone]. Jenna requested financial sales advisor. LEAH called back w/ Marcio #[phone] 2x. Calls were not answered. LEAH attempted to call the other number [phone] but wrong number. Signed: 08/11/19 at 1655 by BAHMAN LYNN <Co-Signature Required>
--- NOTE | 2019-08-11 17:16 | NUR ---
ROBOTIC TOY INVENTOR NOTE LEAH received a phone call from Detective Marie from [facility]. LEAH was informed to call [facility] to take pt off from the system as a missing person. LEAH will attempt to call [employer] [phone] next . Signed: 08/11/19 at 1717 by BAHMAN LYNN <Co-Signature Required>
--- NOTE | 2019-08-11 18:56 | NUR ---
HAND-OFF: Report given to
--- NOTE | 2019-08-11 19:25 | NUR ---
NURSE NOTES: Received patient awake, alert, verbal, resting in bed, comfortable.
[2019-08-11 20:23] VITALS: BP 137/77
[2019-08-12 04:00] VITALS: BP 121/68
--- NOTE | 2019-08-12 07:18 | NUR ---
HAND-OFF: Report given to Mary Rodriguez RN.
--- NOTE | 2019-08-12 07:28 | NUR ---
BARREL ASSEMBLY INSPECTOR NOTE LEAH spoke w/ Officer Teo from [employer] [phone] that he does not see pt as a missing person. LEAH spoke w/ Detective Marie from [facility] [phone] and informed of such attempt. Detective Marie states she will remove pt from the missing person's system. Signed: 08/12/19 at 0733 by BAHMAN LYNN <Co-Signature Required>
--- NOTE | 2019-08-12 07:47 | NUR ---
NURSE NOTES: Received patient in bed, patient awake, alert,oriented x4, no sign of distress, denies pain or discomfort,on fall precaution, 4P;s in progress call light w/n reach will continue to monitor patient condition randi mullins
[2019-08-12 08:00] VITALS: BP 136/76
[2019-08-12] MEDS: Docusate 100mg cap ORAL SCH ×3 (08:25→17:39)
[2019-08-12] MEDS: Aspirin Baby 81mg ORAL SCH (08:25)
[2019-08-12] MEDS: Metoprolol Tartrate 12.5mg TAB ORAL SCH ×2 (08:25→20:46)
--- NOTE | 2019-08-12 08:29 | General Progress Note ---
Assessment/Plan Problem List: (1) Blister of foot ICD Codes: S90.829A - Blister (nonthermal), unspecified foot, initial encounter SNOMED: 099352253 Qualifiers: Qualified Codes: S90.829A - Blister (nonthermal), unspecified foot, initial encounter (2) Leukocytosis ICD Codes: D72.829 - Elevated white blood cell count, unspecified SNOMED: 352964621, 746438203 Qualifiers: Qualified Codes: D72.828 - Other elevated white blood cell count (3) Rhabdomyolysis ICD Codes: M62.82 - Rhabdomyolysis SNOMED: 884142066, 084332692 Qualifiers: Qualified Codes: T79.6XXA - Traumatic ischemia of muscle, initial encounter (4) Schizophrenia ICD Codes: F20.9 - Schizophrenia, unspecified SNOMED: 20153010 Qualifiers: Qualified Codes: F20.9 - Schizophrenia, unspecified Status: stable, progressing Assessment/Plan: pt diet wound care pain control psyc podiatry eval cbc bmp am dc to psyc or snf if clear Subjective Constitutional: Reports: weakness Allergies: Coded Allergies: No Known Allergies (Unverified , 08/06/19) All Systems: reviewed and negative except above Subjective calm in bed Objective Last 24 Hour Vital Signs Date Time Temp Pulse Resp B/P (MAP) Pulse Ox O2 Delivery O2 Flow Rate FiO2 08/12/19 08:25 80 136/76 08/12/19 08:00 98.2 80 20 136/76 (96) 98 08/12/19 04:00 97.9 63 20 121/68 (85) 95 08/11/19 20:44 74 137/77 08/11/19 20:23 98.2 74 18 137/77 (97) 95 08/11/19 16:00 98.1 79 18 127/70 (89) 97 08/11/19 12:02 98.2 86 18 141/71 (94) 98 08/11/19 09:00 Room Air Intake and Output 08/11/19 08/12/19 19:00 07:00 Intake Total 1000 ml 800 ml Balance 1000 ml 800 ml Intake Oral 1000 ml 800 ml # Voids 3 5 # Bowel Movements 2 Laboratory Tests 08/12/19 08:10: White Blood Count [Pending], Red Blood Count [Pending], Hemoglobin [Pending], Hematocrit [Pending], Mean Corpuscular Volume [Pending], Mean Corpuscular Hemoglobin [Pending], Mean Corpuscular Hemoglobin Concent [Pending], Red Cell Distribution Width [Pending], Platelet Count [Pending], Mean Platelet Volume [ Pending], Neutrophils (%) (Auto) [Pending], Lymphocytes (%) (Auto) [Pending], Monocytes (%) (Auto) [Pending], Eosinophils (%) (Auto) [Pending], Basophils (%) (Auto) [Pending], Sodium Level [Pending], Potassium Level [Pending], Chloride Level [Pending], Carbon Dioxide Level [Pending], Blood Urea Nitrogen [Pending], Creatinine [Pending], Estimat Glomerular Filtration Rate [Pending], Glucose Level [Pending], Calcium Level [Pending] Height (Feet): 5 Height (Inches): 3.00 Weight (Pounds): 140 General Appearance: lethargic EENT: normal ENT inspection Neck: normal alignment Cardiovascular: normal peripheral pulses, normal rate, regular rhythm Respiratory/Chest: chest wall non-tender, lungs clear, normal breath sounds Abdomen: normal bowel sounds, non tender, soft Extremities: normal inspection Edema: no edema noted Arm (L), no edema noted Arm (R), no edema noted Leg (L), no edema noted Leg (R), no edema noted Pedal (L), no edema noted Pedal (R), no edema noted Generalized Neurologic: motor weakness Skin: normal pigmentation, warm/dry Mike Andrade DO Aug 12, 2019 08:29
[2019-08-12 08:46] LABS: ANION GAP 9 mmol/L (5-15); BLOOD UREA NITROGEN 25 mg/dL (7-18); CALCIUM 9.2 MG/DL (8.5-10.1); CARBON DIOXIDE 26 MMOL/L (21-32); CHLORIDE 107 MMOL/L (98-107); CREATININE 0.8 MG/DL (0.55-1.30); POTASSIUM 4.1 MMOL/L (3.5-5.1); SODIUM 142 MMOL/L (136-145)
[2019-08-12 08:47] LABS: EOSINOPHILS % (AUTO) 2.6 % (0.0-3.0); HEMATOCRIT 44.9 % (42.0-52.0); HEMOGLOBIN 15.6 G/DL (14.2-18.0); LYMPHOCYTES % (AUTO) 23.6 % (20.0-45.0); MEAN CORPUSCULAR VOLUME 88 FL (80-99); NEUTROPHILS % (AUTO) 67.8 % (45.0-75.0); PLATELET COUNT 259 K/UL (150-450); RED BLOOD COUNT 5.11 M/UL (4.70-6.10); RED CELL DISTRIBUTION WIDTH 10.7 % (11.6-14.8); WHITE BLOOD COUNT 8.4 K/UL (4.8-10.8)
--- NOTE | 2019-08-12 10:08 | NUR ---
*-* INSURANCE *-* ALL CLINICALS AND REVIEWS HAVE BEEN FAXED TO: [facility] no ref# ph#[phone] fax#[phone] & [employer] no ref# [id number] ph#[phone] fax# [phone]
--- NOTE | 2019-08-12 10:51 | NUR ---
NURSE NOTES: Received patient on bed awake. No SOB or acute distress. IV line intact and patent. Wound dressing intact. HOB elevated. Bed locked in lowest position. Call light within reach. Will continue plan of care.
--- NOTE | 2019-08-12 11:30 | NUR ---
HAND-OFF: Report given to Ms Curt SLATER, accordingly Resting comfortably in bed, no sign of ditress. randi mullins
--- NOTE | 2019-08-12 11:57 | NUR ---
RD ASSESSMENT & RECOMMENDATIONS SEE CARE ACTIVITY FOR COMPLETE ASSESSMENT DAILY ESTIMATED NEEDS: Needs based on Cardiac 67kg 25-30 kcals/kg total kcals 1-1.2 g protein/kg 67-80 g total protein 25-30 mL/kg total fluid mLs NUTRITION DIAGNOSIS: Decreased sodium needs r/t cardiac history as evidenced by h/o HTN CURRENT DIET: Regular PO DIET RECOMMENDATIONS: LOW NA DIET / soft easy chew ADDITIONAL RECOMMENDATIONS: 1) Maintain weekly calibrated bed scale wts 2) Monitor BG, need for carb control diet 3) RG BID for wound healing/ foot blisters. 4) Pt on psych meds, may alter appetite, monitor po intake.
[2019-08-12 12:00] VITALS: BP 139/72
--- NOTE | 2019-08-12 12:31 | NUR ---
BUSINESS QUALITY ASSURANCE ANALYST NOTE DR MCDONALD INFORMED OF BARRIERS IN RE TO PSYCH AND SNF PLACEMENT. INFORMED PATIENTS FAMILY HAS BEEN LOCATED AND CONFIRMED PATIENT RESIDES WITH HIS SISTER. DR MCDONALD GAVE ORDER TO DC HOME WITH HOSPITAL MEDS IF CLEAR BY ALL. NOTED AND CARRIED OUT.
--- NOTE | 2019-08-12 13:09 | Nephrology Progress Note ---
Assessment/Plan Problem List: (1) Rhabdomyolysis (2) Leukocytosis (3) Blister of foot (4) Schizophrenia (5) Dehydration Assessment Rhabdo- Drug use- Dehydration Homelessness HTN Plan continue Hydrate PO monitor CPK-level is lowering Keep bp in check Add aspirin and Lopressor Check TSH. Check lipid panel. Per orders. Subjective ROS Limited/Unobtainable: No Objective Objective Last 24 Hour Vital Signs Date Time Temp Pulse Resp B/P (MAP) Pulse Ox O2 Delivery O2 Flow Rate FiO2 08/12/19 08:25 80 136/76 08/12/19 08:00 Room Air 08/12/19 08:00 98.2 80 20 136/76 (96) 98 08/12/19 04:00 97.9 63 20 121/68 (85) 95 08/11/19 20:44 74 137/77 08/11/19 20:23 98.2 74 18 137/77 (97) 95 08/11/19 16:00 98.1 79 18 127/70 (89) 97 Intake and Output 08/11/19 08/12/19 19:00 07:00 Intake Total 1000 ml 800 ml Balance 1000 ml 800 ml Intake Oral 1000 ml 800 ml # Voids 3 5 # Bowel Movements 2 Laboratory Tests 08/12/19 08:10: White Blood Count 8.4, Red Blood Count 5.11, Hemoglobin 15.6, Hematocrit 44.9, Mean Corpuscular Volume 88, Mean Corpuscular Hemoglobin 30.5, Mean Corpuscular Hemoglobin Concent 34.8, Red Cell Distribution Width 10.7L, Platelet Count 259, Mean Platelet Volume 7.9, Neutrophils (%) (Auto) 67.8, Lymphocytes (%) (Auto) 23.6, Monocytes (%) (Auto) 5.0, Eosinophils (%) (Auto) 2.6, Basophils (%) (Auto ) 1.0, Sodium Level 142, Potassium Level 4.1, Chloride Level 107, Carbon Dioxide Level 26, Anion Gap 9, Blood Urea Nitrogen 25H, Creatinine 0.8, Estimat Glomerular Filtration Rate > 60, Glucose Level 126H, Calcium Level 9.2 Height (Feet): 5 Height (Inches): 3.00 Weight (Pounds): 140 General Appearance: no apparent distress Cardiovascular: normal rate Respiratory/Chest: lungs clear Objective no change Kurt Olmstead MD 5, 2020 13:09
[2019-08-12 13:53] LABS: ALANINE AMINOTRANSFERASE 44 U/L (12-78); ALBUMIN 3.2 G/DL (3.4-5.0); ALKALINE PHOSPHATASE 98 U/L (46-116); ASPARTATE AMINO TRANSFERASE 22 U/L (15-37); BILIRUBIN,DIRECT < 0.1 MG/DL (0.0-0.3); BILIRUBIN,TOTAL 0.2 MG/DL (0.2-1.0); CREATINE KINASE 40 U/L (26-308); PHOSPHORUS 3.1 MG/DL (2.5-4.9)
--- NOTE | 2019-08-12 15:18 | Infectious Diseases Prog Note ---
Assessment/Plan Assessment/Plan ASSESSMENT: The patient is a 58-year-old male, who was brought to the hospital and found on the street, Rhabdomyolysis Leukocytosis (probably secondary to acute stress) Rule out bacteremia (history of IV drug abuse) Afebrile Elevated AST -HIV ab sc, acute hep panel neg psychiatric disorder hypertension homelessness PLAN: will monitor the patient off of antibiotics. Blood culture x2 We will monitor CBC ok to DC from ID Standpoint Subjective Allergies: Coded Allergies: No Known Allergies (Unverified , 08/06/19) Subjective possible DC today Objective Vital Signs Last 24 Hour Vital Signs Date Time Temp Pulse Resp B/P (MAP) Pulse Ox O2 Delivery O2 Flow Rate FiO2 08/12/19 12:00 97.8 67 20 139/72 (94) 97 08/12/19 08:25 80 136/76 08/12/19 08:00 Room Air 08/12/19 08:00 98.2 80 20 136/76 (96) 98 08/12/19 04:00 97.9 63 20 121/68 (85) 95 08/11/19 20:44 74 137/77 08/11/19 20:23 98.2 74 18 137/77 (97) 95 08/11/19 16:00 98.1 79 18 127/70 (89) 97 Height (Feet): 5 Height (Inches): 3.00 Weight (Pounds): 140 HEENT: anicteric Respiratory/Chest: no respiratory distress Cardiovascular: no gallop/murmur Abdomen: non distended Laboratory Tests Test 08/12/19 08:10 White Blood Count 8.4 K/UL (4.8-10.8) Red Blood Count 5.11 M/UL (4.70-6.10) Hemoglobin 15.6 G/DL (14.2-18.0) Hematocrit 44.9 % (42.0-52.0) Mean Corpuscular Volume 88 FL (80-99) Mean Corpuscular Hemoglobin 30.5 PG (27.0-31.0) Mean Corpuscular Hemoglobin Concent 34.8 G/DL (32.0-36.0) Red Cell Distribution Width 10.7 % (11.6-14.8) L Platelet Count 259 K/UL (150-450) Mean Platelet Volume 7.9 FL (6.5-10.1) Neutrophils (%) (Auto) 67.8 % (45.0-75.0) Lymphocytes (%) (Auto) 23.6 % (20.0-45.0) Monocytes (%) (Auto) 5.0 % (1.0-10.0) Eosinophils (%) (Auto) 2.6 % (0.0-3.0) Basophils (%) (Auto) 1.0 % (0.0-2.0) Sodium Level 142 MMOL/L (136-145) Potassium Level 4.1 MMOL/L (3.5-5.1) Chloride Level 107 MMOL/L (98-107) Carbon Dioxide Level 26 MMOL/L (21-32) Anion Gap 9 mmol/L (5-15) Blood Urea Nitrogen 25 mg/dL (7-18) H Creatinine 0.8 MG/DL (0.55-1.30) Estimat Glomerular Filtration Rate > 60 mL/min (>60) Glucose Level 126 MG/DL (74-106) H Calcium Level 9.2 MG/DL (8.5-10.1) Phosphorus Level 3.1 MG/DL (2.5-4.9) Magnesium Level 1.8 MG/DL (1.8-2.4) Total Bilirubin 0.2 MG/DL (0.2-1.0) Direct Bilirubin < 0.1 MG/DL (0.0-0.3) Aspartate Amino Transf (AST/SGOT) 22 U/L (15-37) Alanine Aminotransferase (ALT/SGPT) 44 U/L (12-78) Alkaline Phosphatase 98 U/L (46-116) Total Creatine Kinase 40 U/L (26-308) Total Protein 7.2 G/DL (6.4-8.2) Albumin 3.2 G/DL (3.4-5.0) L Current Medications Medications (Trade) Dose Ordered Sig/Solange Route PRN Reason Start Time Stop Time Status Last Admin Dose Admin Aspirin (ASA) 81 mg DAILY ORAL 08/09/19 09:00 09/08/19 08:59 08/12/19 08:25 Docusate Sodium (Colace) 100 mg TID ORAL 08/07/19 13:00 09/05/19 17:59 08/12/19 12:23 Haloperidol Decanoate (Haldol Decanoate(Long Acting)) 50 mg QMONTH IM 08/07/19 09:00 09/06/19 08:59 08/07/19 10:08 Hydralazine HCl (Apresoline) 25 mg Q4H PRN ORAL bp over 160 syst 08/06/19 13:30 09/05/19 13:29 Lorazepam (Ativan) 2 mg Q4H PRN ORAL For Anxiety 08/06/19 10:45 08/13/19 10:44 08/07/19 21:10 Metoprolol Tartrate (Lopressor) 12.5 mg Q12HR ORAL 08/08/19 21:00 09/07/19 20:59 08/12/19 08:25 Pantoprazole (Protonix) 40 mg EVERY 12 HOURS ORAL 08/07/19 21:00 09/06/19 20:59 08/12/19 08:25 Risperidone (RisperDAL) 2 mg BEDTIME ORAL 08/06/19 21:00 09/05/19 20:59 08/11/19 20:44 Tiago Hdz MD Aug 12, 2019 15:18
--- NOTE | 2019-08-12 15:38 | NUR ---
PLASTER PATTERN CASTER NOTE LEAH spoke w/ pt's sister, Jenna Granados [phone] and chief environmental commitment officer Rubi #[phone]. LEAH explained multiple family members have been calling the hospital in regards to pt. LEAH explained that staff cannot repeat the same information to each family member. LEAH explained Jenna that the hospital will call Jenna (sister who is currently living w/ pt) and Ramon [phone] (brother who was the private conservator in the past and the current payee of pt's income) once pt is to be discharged. LEAH also explained the involuntary psychiatric admission in case if pt needs to be evaluated in the future. Jenna verbalized understanding. Family to transport pt, no taxi ride d/t pt's mental condition. Signed: 08/12/19 at 1540 by BAHMAN LYNN <Co-Signature Required>
--- NOTE | 2019-08-12 16:02 | NUR ---
KINDERGARTEN PREP TEACHER NOTE LEAH spoke w/ Ramon Guerra [phone], explaining that pt's sister Jenna has some mental issue. However, pt will reside w/ Jenna for time being. LEAH explained Ramon the importance of outpatient mental health services for pt and highly recommended pt to get psychiatric evaluation. Signed: 08/12/19 at 1605 by BAHMAN LYNN <Co-Signature Required>
--- NOTE | 2019-08-12 17:22 | NUR ---
CASE MANAGEMENT:DISCHARGE PLAN NOTE CALL MADE AND SPOKE WITH PATIENTS SISTER TONG WITH WHOM HE RESIDES IN [place] INFORMED SISTER PATIENT HAS BEEN CLEARED FOR DISCHARGE AND CAN RETURN HOME OF TODAY. SISTER STATES SHE WILL COME TO [facility] THIS EVENING TO COAL CAGER PATIENT. RN NOT AVAILABLE, 4E ENGINEERING MANAGER INFORMED
--- NOTE | 2019-08-12 18:44 | NUR ---
NURSE NOTES: Dr Andrade ordered to hold discharge until tomorrow. Dr Quinn to come and give prescriptions. Patient aware.
--- NOTE | 2019-08-12 19:30 | NUR ---
NURSE NOTES: Patient's sister, Jenna, came to fruit picker machine operator patient. RN explained why patient's discharge order is on hold, verbalized understanding.
--- NOTE | 2019-08-12 19:30 | NUR ---
NURSE NOTES: RECEIVED PATIENT FROM BRYON BLUNT. PATIENT IS AWAKE, AAOX4, ON ROOM AIR, NO ACUTE DISTRESS NOTED. PATIENT DENIES PAIN AND SOB. IV ON RIGHT FOREARM INTACT AND PATENT. WOUND DRESSING ON RIGHT FOOT INTACT AND DRY. BED IS LOCKED AND LOW, BED ALARMS ACTIVE, SIDE RAILS UPX2, AND CALL LIGHT IS WITHIN REACH. WILL CONTINUE TO MONITOR.
--- NOTE | 2019-08-12 19:53 | NUR ---
HAND-OFF: Report given to zhane.
[2019-08-12 20:00] VITALS: BP 123/68
[2019-08-13] VITALS: BP 125/78
--- NOTE | 2019-08-13 07:00 | Progress Note ---
DATE: 08/12/2019 SUBJECTIVE: The patient is doing well. Stable at baseline. No behavior issues noted. The patient is compliant with care. The patient is in the process and communicate irrationally. The patient is asking to be discharged. MENTAL STATUS EXAMINATION: The patient is alert and oriented to time, self, place, and situation. Mood is neutral. Affect is constricted. Thought process is linear. Thought content, no suicidal or homicidal ideation. ASSESSMENT: Stable. PLAN: 1. We will continue current medications. 2. Provide the patient with reality orientation and supportive therapy. Courtney Meraz M.D. DR: SPENCER JOB#: [id number] CC:
--- NOTE | 2019-08-13 07:09 | NUR ---
NURSE NOTES: Patient received awake. No SOB or acute distress. IV line intact and patent. Awaiting prescription prior to discharge, Dr Quinn to give as per Dr Andrade. HOB elevated. Bed locked in lowest position. Call light within reach. Will continue plan of care.
--- NOTE | 2019-08-13 07:21 | NUR ---
HAND-OFF: Report given to BRYON Kingston.
[2019-08-13 08:00] VITALS: BP 114/68
[2019-08-13] MEDS: Docusate 100mg cap ORAL SCH ×2 (08:31→13:03)
[2019-08-13] MEDS: Metoprolol Tartrate 12.5mg TAB ORAL SCH (08:31)
[2019-08-13] MEDS: Aspirin Baby 81mg ORAL SCH (08:32)
--- NOTE | 2019-08-13 08:36 | NUR ---
TOURIST GUIDE NOTE PATIENT ANTICIPATED TO DISCHARGE TODAY 08/13/2019. PER MERLENE RN, AWAITING PRESCRIPTIONS FROM MD. AWAITING DR MACIAS TO SEE PATIENT AND RN WILL INFORM DR STERN IN RE TO RX FOR PSYCHOTROPIC MEDS.
--- NOTE | 2019-08-13 09:08 | Nephrology Progress Note ---
Assessment/Plan Problem List: (1) Rhabdomyolysis (2) Leukocytosis (3) Blister of foot (4) Schizophrenia (5) Dehydration Assessment Rhabdo- Drug use- Dehydration Homelessness HTN Plan Patient stable for discharge need placement Improve nutritional status Physical therapy Keep hydrated Keep bp in check Add aspirin and Lopressor Check TSH. Check lipid panel. Per orders. Subjective ROS Limited/Unobtainable: No Objective Objective Last 24 Hour Vital Signs Date Time Temp Pulse Resp B/P (MAP) Pulse Ox O2 Delivery O2 Flow Rate FiO2 08/13/19 08:31 81 114/68 08/13/19 08:00 98.0 81 18 114/68 (83) 99 08/13/19 00:00 98.3 80 18 125/78 (94) 96 08/12/19 21:00 Room Air 08/12/19 20:46 66 123/68 08/12/19 20:00 97.7 66 16 123/68 (86) 96 08/12/19 12:00 97.8 67 20 139/72 (94) 97 Intake and Output 08/12/19 08/13/19 19:00 07:00 Intake Total 1250 ml Balance 1250 ml Intake Oral 1250 ml # Voids 1 2 # Bowel Movements 1 1 Height (Feet): 5 Height (Inches): 3.00 Weight (Pounds): 140 General Appearance: no apparent distress Objective no change Kurt Olmstead MD Aug 13, 2019 09:08
[2019-08-13] MEDS ORDERED: ASPIRIN81 MG ORAL (09:28)
[2019-08-13] MEDS ORDERED: COLACE100 MG ORAL (09:29)
[2019-08-13] MEDS ORDERED: METOPROLOL TART25 MG ORAL (09:30)
[2019-08-13] MEDS ORDERED: PRILOSEC OTC20 MG ORAL (09:31)
[2019-08-13] MEDS ORDERED: RISPERDAL2 MG ORAL (09:34)
--- NOTE | 2019-08-13 09:49 | General Progress Note ---
Assessment/Plan Problem List: (1) Leukocytosis ICD Codes: D72.829 - Elevated white blood cell count, unspecified SNOMED: 786366867, 882714170 Qualifiers: Qualified Codes: D72.828 - Other elevated white blood cell count (2) Rhabdomyolysis ICD Codes: M62.82 - Rhabdomyolysis SNOMED: 745135211, 250291196 Qualifiers: Qualified Codes: T79.6XXA - Traumatic ischemia of muscle, initial encounter (3) Schizophrenia ICD Codes: F20.9 - Schizophrenia, unspecified SNOMED: 60823711 Qualifiers: Qualified Codes: F20.9 - Schizophrenia, unspecified (4) Dehydration ICD Codes: E86.0 - Dehydration SNOMED: 78812929 (5) Blister of foot ICD Codes: S90.829A - Blister (nonthermal), unspecified foot, initial encounter SNOMED: 836107586 Qualifiers: Qualified Codes: S90.829A - Blister (nonthermal), unspecified foot, initial encounter Status: stable, progressing Assessment/Plan: cleared by as400 consultant for dc i gave prescription for his medical meds already stable Subjective ROS Limited/Unobtainable: Yes Allergies: Coded Allergies: No Known Allergies (Unverified , 08/06/19) Objective Last 24 Hour Vital Signs Date Time Temp Pulse Resp B/P (MAP) Pulse Ox O2 Delivery O2 Flow Rate FiO2 08/13/19 08:31 81 114/68 08/13/19 08:00 98.0 81 18 114/68 (83) 99 08/13/19 00:00 98.3 80 18 125/78 (94) 96 08/12/19 21:00 Room Air 08/12/19 20:46 66 123/68 08/12/19 20:00 97.7 66 16 123/68 (86) 96 08/12/19 12:00 97.8 67 20 139/72 (94) 97 Intake and Output 08/12/19 08/13/19 19:00 07:00 Intake Total 1250 ml Balance 1250 ml Intake Oral 1250 ml # Voids 1 2 # Bowel Movements 1 1 Height (Feet): 5 Height (Inches): 3.00 Weight (Pounds): 140 Sebastián Quinn MD Aug 13, 2019 09:49
--- NOTE | 2019-08-13 10:11 | Infectious Diseases Prog Note ---
Assessment/Plan Assessment/Plan ASSESSMENT: The patient is a 58-year-old male, who was brought to the hospital and found on the street, Rhabdomyolysis Leukocytosis (probably secondary to acute stress), Sp no evid of bacteremia (history of IV drug abuse) Afebrile Elevated AST -HIV ab sc, acute hep panel neg psychiatric disorder hypertension homelessness PLAN: will monitor the patient off of antibiotics We will monitor CBC ok to DC from ID Standpoint Subjective Allergies: Coded Allergies: No Known Allergies (Unverified , 08/06/19) Subjective no pain comfortable Objective Vital Signs Last 24 Hour Vital Signs Date Time Temp Pulse Resp B/P (MAP) Pulse Ox O2 Delivery O2 Flow Rate FiO2 08/13/19 08:31 81 114/68 08/13/19 08:00 98.0 81 18 114/68 (83) 99 08/13/19 00:00 98.3 80 18 125/78 (94) 96 08/12/19 21:00 Room Air 08/12/19 20:46 66 123/68 08/12/19 20:00 97.7 66 16 123/68 (86) 96 08/12/19 12:00 97.8 67 20 139/72 (94) 97 Height (Feet): 5 Height (Inches): 3.00 Weight (Pounds): 140 HEENT: anicteric Respiratory/Chest: no respiratory distress Cardiovascular: regular rhythm Abdomen: non distended Current Medications Medications (Trade) Dose Ordered Sig/Solange Route PRN Reason Start Time Stop Time Status Last Admin Dose Admin Aspirin (ASA) 81 mg DAILY ORAL 08/09/19 09:00 09/08/19 08:59 08/13/19 08:32 Docusate Sodium (Colace) 100 mg TID ORAL 08/07/19 13:00 09/05/19 17:59 08/13/19 08:31 Famotidine (Pepcid) 20 mg BID ORAL 08/13/19 18:00 09/12/19 17:59 Haloperidol Decanoate (Haldol Decanoate(Long Acting)) 50 mg QMONTH IM 08/07/19 09:00 09/06/19 08:59 08/07/19 10:08 Hydralazine HCl (Apresoline) 25 mg Q4H PRN ORAL bp over 160 syst 08/06/19 13:30 09/05/19 13:29 Lorazepam (Ativan) 2 mg Q4H PRN ORAL For Anxiety 08/06/19 10:45 08/13/19 10:44 08/07/19 21:10 Metoprolol Tartrate (Lopressor) 12.5 mg Q12HR ORAL 08/08/19 21:00 09/07/19 20:59 08/13/19 08:31 Risperidone (RisperDAL) 2 mg BEDTIME ORAL 08/06/19 21:00 09/05/19 20:59 08/12/19 20:46 Tiago Hdz MD Aug 13, 2019 10:11
[2019-08-13 11:07] LABS: ANION GAP 11 mmol/L (5-15); BASOPHILS % (AUTO) 0.8 % (0.0-2.0); BLOOD UREA NITROGEN 28 mg/dL (7-18); CALCIUM 9.2 MG/DL (8.5-10.1); CARBON DIOXIDE 24 MMOL/L (21-32); CHLORIDE 104 MMOL/L (98-107); CREATININE 0.9 MG/DL (0.55-1.30); EOSINOPHILS % (AUTO) 2.2 % (0.0-3.0); HEMATOCRIT 44.4 % (42.0-52.0); HEMOGLOBIN 15.5 G/DL (14.2-18.0); LYMPHOCYTES % (AUTO) 25.7 % (20.0-45.0); MEAN CORPUSCULAR VOLUME 88 FL (80-99); NEUTROPHILS % (AUTO) 65.4 % (45.0-75.0); PLATELET COUNT 264 K/UL (150-450); POTASSIUM 4.1 MMOL/L (3.5-5.1); RED BLOOD COUNT 5.07 M/UL (4.70-6.10); RED CELL DISTRIBUTION WIDTH 10.4 % (11.6-14.8); SODIUM 139 MMOL/L (136-145); WHITE BLOOD COUNT 8.6 K/UL (4.8-10.8)
[2019-08-13 12:00] VITALS: BP 120/62
--- NOTE | 2019-08-13 12:39 | NUR ---
*-* INSURANCE *-* UPDATED CLINICALS AND REVIEWS HAVE BEEN FAXED TO: Maru [facility]cal no ref# ph#[phone] fax#[phone] & [employer] no ref# [id number] ph#[phone] fax# [phone]
--- NOTE | 2019-08-13 13:09 | NUR ---
PILLOWCASE CUTTER DISCHARGE PLANNING NOTE CONFIRMED WITH MERLENE RN, RX FOR HOME MEDS OBTAINED AND FAXED TO [facility]. CALL MADE TO PATIENTS SISTER TO INFORM THAT MEDICATIONS HAVE BEEN ORDERED AND PATIENT IS READY FOR DISCHARGE. STATES SHE WILL FIND SOMEONE TO DRIVE HER TO [facility] TO POWDER LINE REPAIRER PATIENT NOW.
--- NOTE | 2019-08-13 15:40 | NUR ---
NURSE NOTES: Patient discharged to home accompanied by family members. IV line removed. ID band removed. No belongings to account for. No new skin issues noted. Discharge instructions and list of community resources given. Patient preferred to ambulate to exit premises, gait steady.
--- NOTE | 2019-08-14 02:00 | Progress Note ---
DATE: 08/13/2019 SUBJECTIVE: The patient is calm, cooperative. No behavior issues noted. The patient wants to just be discharged. Medication prescription was written. The patient is not endorsing any suicidal or homicidal ideations. The patient is calm and able to express his needs. MENTAL STATUS EXAMINATION: Alert and oriented times self, place, and situation. Mood is neutral. Affect is constricted. Congruent mood. Thought process is concrete. Thought content, no suicidal or homicidal ideation. ASSESSMENT: Stable. PLAN: Provide the patient with reality orientation and supportive therapy. Courtney Meraz M.D. DR: FERMIN JOB#: [id number] CC:
--- NOTE | 2019-08-15 15:09 | Discharge Summary ---
Discharge Summary Discharge Summary _ DATE OF ADMISSION: 08/06/2019 DATE OF DISCHARGE: 08/13/2019 DISCHARGED BY: Dr. Mike Andrade CONSULTANTS: Dr. Courtney Call BRIEF HOSPITAL COURSE: Patient is a 60-year-old male, homeless, who presented to ED due to altered mental status. He was brought in by [employer] and EMS found walking naked in the streets. He stated he usually takes psychiatric medications. Most recently he was on Zyprexa. Unsure of the dose. He admits to smoking, alcohol and cocaine use. He denied any suicidal or homicidal ideations. He was placed on 5150. He denied any productive headache, nausea, vomiting or diarrhea. Upon evaluation at ED, blood work showed WBC elevated to 18. Hemoglobin and hematocrit were stable. Potassium 3.2. He had elevated total CK to 3000. Troponin was negative. Urine toxicology screen was negative. Serum alcohol level was less than 3. Acetaminophen level less than 2. Salicylate normal. He was treated with bacitracin. He was started on Zyprexa. He was given IV hydration. He was then admitted for rhabdomyolysis. He was admitted to medical floor. He was continued on IV hydration. ID was consulted. Per ID observe off antibiotics. Patient was pancultured. Psychiatrist was consulted. Patient was easily agitated. He was making nonsensical words in American. He was diagnosed with schizophrenia. He was placed on risperidone and Haldol. Billiard Player was consulted. Patient had bilateral foot pain and blister on the right foot. Blister was evacuated. There was no acute signs of infection. He was provided with wound care. Per podiatry, no acute surgical intervention required at this time. HIV screening negative. Hepatitis panel negative. Blood pressure was noted to be high. Lopressor was added to his regimen. He was also given aspirin. Blood culture did not isolate any growth. He was given physical therapy. Social service consulted to aid with discharge. Patient was discharged home with family. FINAL DIAGNOSES: Acute rhabdomyolysis Leukocytosis, possibly reactive Blister on foot, present on admission Schizophrenia Dehydration Homelessness Hypertension DISPOSITION: [place] home with family. DISCHARGE MEDICATIONS: Refer to Discharge Medication List. DISCHARGE INSTRUCTIONS: Follow-up in a week. I have been assigned to complete a discharge summary on this account, I was not involved with the patient's management.--CHET Bell Jacqueline Robles NP Aug 15, 2019 15:09
--- NOTE | 2019-08-16 14:17 | NUR ---
*-* INSURANCE *-* DISCHARGE SUMMARY HAS BEEN FAXED TO: Maru Gordon no ref# ph#[phone] fax#[phone] & [facility] f: [phone]
== END 2019-08-13 15:40 | disposition home or self-care (01) | DRG 351 ==
LOC: EDBD 06:16 → EMR 06:38 → EDBEDREQ 08:14 → 4E 08:44
DX: M62.82 Rhabdomyolysis (principal); E86.0 Dehydration; F20.9 Schizophrenia, unspecified; Z59.0 Homelessness; I10 Essential (primary) hypertension; S90.821A Blister (nonthermal), right foot, initial encounter; X58.XXXA Exposure to other specified factors, initial encounter
CPT/HCPCS: 36415; 71045; 80048; 80053; 80061; 80076; 80307; 81001; 82248; 82550; 82607; 82746; 82962; 83036; 83735; 84100; 84443; 84484; 85007; 85025; 86703; 86705; 86709; 86803; 87040; 87340; 90471; 90715; 93005; 96360; 99285; G0480; J7030; J8499